=== PATIENT | male | born 1945 | race Caucasian/White ===

== ENCOUNTER 2025-01-12 06:56 | Emergency (ER) | payer MEDICARE, SELFPAY ==
--- OUTSIDE RECORDS SUMMARY | 2025-01-12 06:58 | XMS_ITS | Clinical Summary ---
Author Organization [employer] [facility] Address [address] [place] [id number] Care Team Providers Care Earth Science Technician Name Role Phone Jimmy Ley MD Primary Care Provider [phone] Eve Gregg MD Unavailable [phone] Horace Espinal MD Unavailable [phone] [place] rodarte PharmD Unavailable [phone] Allergies Active Allergy Reactions Criticality Noted Date Comments Banana GI Upset 09/07/2020 Bupropion Other - Describe In Comment Field 08/13/2007 Wellbutrin Tremulousness/anxiet y Egg GI Upset 09/06/2020 No problem with flu shot Diatrizoate Allergen Hives 08/13/2007 IV @ anw for CT/MRI scan: severe Hives! Norfloxacin Hives 01/07/2008 Pollen Extracts Itching 01/27/2024 Raspberry GI Upset 09/06/2020 Wheat Diarrhea 09/01/2020 Patient reports having Celiac's in 1996 Medications Multivitamin with Iron-Mineral tablet Take 1 tablet by mouth once daily. PRN 11/04/19 10 Active olopatadine (PatanoL) 0.1 % ophthalmic solutionIndication s:Allergic conjunctivitis, unspecified laterality Place 1 Drop into both eyes 2 times daily. 5 mL 2 11/22/19 22 Active fexofenadine (RATNA) 180 mg tablet Take 180 mg by mouth once daily. Do not crush or chew. 0 01/01/20 23 Active fluticasone propion-salmeteroL (Advair Diskus) 250-50 mcg/Dose diskus inhalerIndications :Chronic bronchitis, unspecified chronic bronchitis type (HC) Inhale 1 Puff by mouth every 12 hours. 60 Each 3 07/08/20 23 Active albuterol HFA (PRO-AIR; VENTOLIN; PROVENTIL) 90 mcg/actuation inhalerIndications :Chronic bronchitis, unspecified chronic bronchitis type (HC) Inhale 2 Puffs by mouth 4 times daily if needed for Shortness of Breath 1st choice. 8.5 g 3 08/30/19 24 Active fluticasone (50 mcg per actuation) nasal solution (FLONASE)Indicatio ns:Chronic frontal sinusitis Inhale 1 Moriarty in both nostrils once daily. 16 g 06/12/20 24 Active tamsulosin 0.4 mg capsuleIndications :BPH without urinary obstruction Take 2 Capsules (0.8 mg) by mouth once daily in the evening. 180 Capsule 2 07/26/20 24 Active Additional Information Patient taking differently: 0.4 mgOral DAILY EVENING,1 capsule a day., Reported on 12/14/2024 Calcium Citrate 250 mg calcium tabletIndications: Osteopenia, unspecified location Take 2 Tablets (500 mg) by mouth two times daily with meals. 07/24/20 24 Active atorvastatin (LIPITOR) 10 mg tabletIndications: Hyperlipidemia, unspecified hyperlipidemia type Take 1 Tablet (10 mg) by mouth once daily. 90 Tablet 3 07/27/20 24 Active escitalopram oxalate (LEXAPRO) 10 mg tabletIndications: Adjustment disorder with depressed mood Take 1 Tablet (10 mg) by mouth once daily. 90 Tablet 3 07/27/20 24 Active hydroCHLOROthiazid e 12.5 mg tabletIndications: HTN (hypertension) Take 1 Tablet (12.5 mg) by mouth once daily. 90 Tablet 3 07/27/20 24 Active losartan (COZAAR) 50 mg tabletIndications: HTN (hypertension) Take 1 Tablet (50 mg) by mouth once daily. 90 Tablet 3 07/27/20 24 Active cholecalciferol, Vitamin D3, 25 mcg (1,000 unit) chew chewable tablet Chew 2 Tablets (2,000 units) by mouth once daily. 40 units = 1 mcg (1000 units = 25 mcg) 08/01/20 24 Active verapamil SR (CALAN SR) 240 mg extended release tabletIndications: PVC (premature ventricular contraction) Take 1 Tablet (240 mg) by mouth once daily with a meal. 90 Tablet 3 09/14/19 25 Active levothyroxine (SYNTHROID) 100 mcg tabletIndications: Congenital hypothyroidism with diffuse goiter Take 1 Tablet (100 mcg) by mouth before breakfast. 90 Tablet 3 09/29/19 25 Active amLODIPine (NORVASC) 5 mg tabletIndications: HTN (hypertension) Take 1 Tablet (5 mg) by mouth once daily. 90 Tablet 3 07/27/20 24 025 Discontin ued(*Med complete/ Regimen complete/ Level of care change) Active Problems Problem Noted Date Diagnosed Date Osteopenia 08/01/2023 Overview (08/01/2023): On DEXA 08/03 - repeat in 3-5 years Colon polyp 10/04/2021 Overview (10/04/2021): Colonoscopy 09/2021 TA, repeat in 5 years, colowrap, propofol, poor IV access Meningioma, cerebral 09/07/2020 History of melanoma 06/22/2015 Dupuytren contracture 04/11/2015 Overview (04/11/2015): Right palm, mild. Primary hyperparathyroidism 04/13/2011 Hypertrophy of prostate with out urinary obstruction and other lower urinary tract symptoms (LUTS) 11/13/2010 Plantar fasciitis 11/13/2010 Osteoarthritis 11/13/2010 Mild intermittent asthma 11/03/2009 Overview (05/21/2017): Worse as a child. Still has occasional flares. Celiac disease 11/02/2008 Chronic rhinitis 08/13/2007 ADJUSTMENT DISORDER WITH DEPRESSED MOOD 08/13/19 08 Mixed hyperlipidemia 06/19/2007 Unspecified hypothyroidism 05/25/2005 Unspecified essential hypertension 05/25/2005 S/P craniotomy Resolved Problems Problem Noted Date Diagnosed Date Resolved Date Chronic bronchitis, unspecif ied chronic bronchitis type 01/04/2022 08/01/2023 Hyperplastic colon polyp 10/28/2015 Overview (10/28/2015): Colonoscopy 10/2015 hyperplastic polyp repeat in 10 years Knee pain, right 04/11/2015 05/21/2017 Special screening for malign ant neoplasm of prostate 06/19/2007 05/21/2017 Encounters Date Type Department Care Team Description 12/14/2024 9:10 AM CDT Office Visit [facility] [address] [place] [address] Ana Singer MD Urinary Problem (Patient states dark brown yesterday has gotten engineering coordinator since then/No pain with urination, frequency and urgency has gotten better.) 12/14/2024 Travel 11/24/2024 3:15 PM CDT Orders Only [facility] [address] [place] [address] Lab, [place] 11/23/2024 Travel 11/17/2024 9:00 AM CDT Office Visit [facility] [address] [place] [address] Olga Norwood MD Follow Up (Follow up after Echo ) 11/17/2024 Travel 11/12/2024 Travel 11/10/2024 11:00 AM CDT Ancillary Procedure [facility] [address] [place] [address] 11/10/2024 Travel 11/02/2024 9:00 AM CDT Nurse/Clinic Staff Only [facility] [address] [place] [address] Apply [employer] 2024 Travel 10/28/2024 Travel 10/25/[address] [address] Olga Norwood MD Refill Request (Metoprolol Succinate, Metoprolol Succinate) 10/19/2024 Orders Only [facility] Scanner 1 scan: (1-Ord) [facility]OLOGY, UROCUFF, 10/19/2024 10/13/2024 10:45 AM CUSTOMER SUPPORT SPECIALIST Nurse/Clinic Staff Only [facility] [address] [place] [address] 10/13/2024 Telephone [facility] [address] [place] [address] Jimmy Ley MD Lab 10/13/[address] [facility] [address] [place] [address] Olga Norwood MD ORDERS (HOLTER MONITOR ) from Last 3 Months Immunizations Immunization Administration Dates Next Due AMB INFLUENZA IIV3 (AGE 65+ YRS) PF (Flu Clinic Only) 05/15/2019 COVID-19 VACCINE SPIKEVAX (M ODERNA 50MCG/0.5ML) 12YO+ PFS 06/12/2024,05/07/2023 COVID-19 vaccine (Moderna 10 0mcg/0.5mL) PF, MDV 10/28/2020,09/30/2020 COVID-19 vaccine (Moderna 50 mcg/0.5mL) 12YO+ BIVALENT PF, MDV 05/04/2022 HepA-HepB (Twinrix) 08/13/2007,11/23/2003,2003 Influenza A (H1N1), Inactiva gonzalo (Age >=3 Years) 07/18/2009 Influenza, High-dose Inactivated 06/03/2024,05/12,05/23/2015 Influenza, High-dose Quadriv alent Inactivated 05/24/2023,05/12/2022,05/30/2021 Influenza, IIV3 (Age >=3 years) 05/06/2009,06/12,06/21/2007 Influenza, Inactivated AIIV4 (Age 65+ Years) Preserv Free 05/13/2020 Influenza, Inactivated IIV3 (Age 65+ Years) Preserv Free 05/13/2020,05/27/2018,05/21/2017 Pneumococcal Poly,23-Valent (Pneumovax) 05/21/20 17,11/03/2009 Pneumococcal conj 13-Valent (Prevnar 13) 015 RSV, Recombinant ADJ Reconst ituted (Arexvy 120MCG/0.5mL) 06/05/2023 Td (Age >=7 Years) 10/30/2005 Tdap 06/08/2015 Zoster (Shingrix-RZV, recombinant) 06/01/2019,,02/03/2019 Zoster (Zostavax-ZVL, live) 08/13/2007 Family History Medical History Relation Name Comments Other Brother James Hepatitis: tire retreader tasha Psychiatric illness Brother James Schizoph renic Depression Father Ramírez tried to comit suicide Heart Disease Father Ramírez Psychiatric illness Father Ramírez Depressi on Cancer Mother Haily Thyroid and col on cancer Other Mother Haily Pulmonary Fibro sis Cancer-prostate Paternal Grandfather Other Sister 1 Marilu Dupuytren's Con tractures Anesthesia Problem No Family History Blood Disease No Family History Relation Name Status Comments Brother James Father Ramírez (Age 82) Mother Haily Paternal Grandfather Sister 1 Marilu Alive Sister 2 Nan Alive Social History Tobacco Use Types Packs/Day Years Used Date Smoking Tobacco: Never Smokeless Tobacco: Never Tobacco Cessation:Counseling Given: Yes Alcohol Use Standard Drinks/Week Comments No 0 (1 standard drink = 0.6 oz pur e alcohol) PHQ-2 Answer Date Recorded PHQ-2 TOTAL SCORE 0 07/27/2024 Social Connections Answer Date Recorded Do you often feel lonely or isolated from those around you? 0 01/27/2024 Financial Resource Strain Answer Date R ecorded Difficulty of Paying Living Expenses 3 01/27/2024 Difficulty of Paying Living Expenses Not on file 01/27/2024 Food Insecurity Answer Date Recorded Do you worry your food will run out before you are able to buy more? 1 01/27/2024 Transportation Needs Answer Date Record ed Does lack of transportation keep you from medica l appointments? 1 01/27/2024 Does lack of transportation keep you from work, meetings or getting things that you need? 1 01/27/2024 Housing Stability Answer Date Recorded What is your housing situation today? 1 01/27/2024 Utilities Answer Date Recorded Do you have trouble paying f or utilities (for example, heat, electricity, water, phone)? 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 Not on file Not on file Not on gagandeep e Not on file Not on file Not on file Not on file Obstetrics History Last Filed Vital Signs Vital Sign Reading Time Taken Comments Blood Pressure 109/75 12/14/2024 9:21 AM CDT Pulse 95 12/14/2024 9:21 AM CDT Temperature 36.9 C (98.4 F) 12/14/2024 9:25 AM CDT Respiratory Rate 16 01/27/2024 11:15 AM CDT Oxygen Saturation 98% 12/14/2024 9:21 AM CDT Inhaled Oxygen Concentration - - Weight 92.8 kg (204 lb 9.6 oz) 12/14/2024 9:21 A M CDT Height 173.5 cm (5' 8.31) 07/27/2024 7:50 AM CS T Body Mass Index 30.83 07/27/2024 7:50 AM CUSTOMER SUPPORT SPECIALIST Plan of Treatment Upcoming Encounters Date Type Department Care Team (Late st Contact Info) Description 02/02/2025 3:15 PM CDT Office Visit [facility] [address] [place] [address] Jimmy Ley MD [address] [place] [address] 02/22/2025 10:27 AM CDT Hospital Encounter [facility] [address] [place] [address] Hossein Bal MD [address] [place] [address] [place] [address] 02/22/2025 10:27 AM CDT - 02/22/2025 12:02 PM CDT Surgery [facility] [address] [place] [address] Hossein Bal MD [address] [place] [place] [id number] ROBOTIC AQUABLATION OF PROSTATE 04/15/2025 10:20 AM CDT Office Visit [facility] [address] [place] [id number] Eve Gregg MD [address] [place], [place] [id number] Scheduled Procedures Name Priority Associated Diagnoses Date/Ti me ROBOTIC AQUABLATION OF PROSTATE Tier 2 LOWER URINARY TRACT SYMPTOMS DUE TO BENIGN PROSTATIC HYPERPLASIA 02/22/2025 10:27 AM CDT Health Maintenance Due Date Last Done Comments Tetanus booster 06/08/2025 06/08/2015, 10/30/2005 BMI (ht and wt on same day) for age 18+ 07/27/2025 07/27/2024, 01/27/2024, 07/08/2023, Additional history exists Medicare Wellness for age 65+ 07/28/2025, 07/08/2023, 07/03/2022, Additional history exists Depression screening for age 12+ 07/30/2025 07/30/2024, 07/27/2024, 07/24/2024, Additional history exists Hepatitis B series for 19+ Completed 08/13, 11/23/2003, 10/18/2003 Tdap Completed 06/08/2015 Pneumococcal series for age 50+ Completed 05/21/2017, 05/23/2015, 11/03/2009 Hepatitis C screening for ag e 18-79 Completed 05/27/2018 Zoster (shingles) series for age 50+ Completed 06/01/2019, 05/13/2019, 02/03/2019, Additional history exists RSV vaccine for adults or Completed 06/05/2023 Influenza Vaccine Completed 06/03/2024, , 05/13/2020, Additional history exists COVID-19 vaccine series Completed 12/12/19, 06/12/2024, 12/03/2023, Additional history exists Medical Devices Implanted Type Area Seafood Clerk Device Identifier Shelf Expiration Date Model / Serial / Lot Dura Neuro 3x3in Durepair Sut - [id number] Implanted:Qty: 1 on 09/07/2020 by Terence Napoles MD at [facility] Right: Cranium [employer] 10/09/2022 [id number] / / [id number] Screw Neuro 4mm Matrixneuro Slf Drill Titnm - [id number] Implanted:Qty: 21 on 09/07/2020 by Terence Napoles MD at [facility] Right: Cranium J And J Depuy CMF [id number] 4.01 / / Plate Facial 6 Hole Synthes Strut - [id number] Implanted:Qty: 1 on 09/07/2020 by Terence Napoles MD at [facility] Right: Cranium J [employer] J Depuy CMF [id number] / / Sutton Hole Cover Neuro 24mm Synthes Low Pro Titnm - [id number] Implanted:Qty: 3 on 09/07/2020 by Terence Napoles MD at [facility] Right: Cranium J [employer] J Depuy CMF [id number] / / Procedures Procedure Name Priority Date/Time Associated Diagnosis Comments URINALYSIS MICROSCOPIC Routine 12/14/2024 9:18 AM CDT Urine discoloration URINE CULTURE Routine 12/14/2024 9:18 AM CDT Urine discoloration URINALYSIS MACROSCOPIC - [facility] ONLY POC DIP (QUEST) Routine 12/14/2024 9:18 AM CDT Urine discoloration TSH Routine 11/24/2024 3:10 PM CDT Hypothyroidism, unspecified type ECHO TTE LIMITED WO CONTRAST W COLOR W LTD DOPPLER Routine 11/10/2024 11:24 AM CDT PVC (premature ventricular contraction) EXTENDED HOLTER Routine 10/21/2024 PVC (premature ventricular contraction) SCAN-DIAGNOSTIC REPORT 10/19/2024 12:00 AM CDT ANTI HCV Routine 05/27/2018 8:45 AM CDT Need for hepatitis C screening test from Last 3 Months or Most Recently Relevant to Health Maintenance Results * (ABNORMAL) POCT Urinalysis Dipstick Only [[id number]] (12/14/2024 9:18 AM CDT) Pathologist [facility] PH 7.5 5.0 - 8.0 [facility] SPECIFIC GRAVITY 1.015 1.001 - 1.035 [facility] GLUCOSE NEGATIVE NEGATIVE [facility] BILIRUBIN NEGATIVE NEGATIVE [facility] KETONES NEGATIVE NEGATIVE [facility] OCCULT BLOOD 2+(A) NEGATIVE [facility] PROTEIN NEGATIVE NEGATIVE [facility] NITRITE NEGATIVE NEGATIVE [facility] LEUKOCYTE ESTERASE NEGATIVE NEGATIVE [facility] Urine URINE SPECIMEN / Unknown 12/14/2024 9:18 AM CDT 12/14/2024 9:19 AM CDT us Ana Singer MD URINE Final Resul t [facility] [address] [place] [address], [facility] [address] [place] [address] * (ABNORMAL) URINALYSIS MICROSCOPIC [[id number]] - routine (12/14/2024 9:18 AM CDT) Pathologist [facility] RBC 51-100(A) 0-2, None Seen /HPF 12/14/2024 2:35 PM CDT [facility] WBC 0-2 0-2, 3-5, None Seen /HPF 12/14/2024 2:35 PM CDT [facility] BACTERIA None Seen None Seen, Rare, Few Bacteria/ HPF 12/14/2024 2:35 PM CDT [facility] EPITHELIAL CELLS None Seen None Seen, Few Epi/HPF 12/14/2024 2:35 PM CDT [facility] HYALINE CASTS 0-2 0-2, 3-5 /LPF 12/14/2024 2:35 PM CDT [facility] Urine URINE SPECIMEN / Unknown Non-Blood / Unknown 12/14/2024 9:18 AM CDT 12/14/2024 9:18 AM CDT Ana Singer MD URINE Final Resul t Performing Organization Address [facility] Co de Phone Number [facility] [address] [place] [address], [place] * URINE CULTURE [[id number]] (12/14/2024 9:18 AM CDT) CULTURE No growth (<1,000 CFU/mL) 12/15/2024 1:54 PM CDT [facility] Urine URINE SPECIMEN / Unknown Non-Blood / Unknown 12/14/2024 9:18 AM CDT 12/14/2024 9:18 AM CDT Ana Singer MD MICROBIOLOGY Final Resul t Performing Organization Address [facility] de Phone Number [facility] [address] [place] [address], [place] * TSH (11/24/2024 3:10 PM CDT) TSH 1.36 0.40 - 4.50 mIU/L [facility] [employer] [facility] Blood BLOOD SPECIMEN / Unknown 11/24/2024 3:10 PM CDT 11/24/2024 3:13 PM CDT Narrative [facility] - 11/25/2024 3:39 AM CDT FASTING:NO FASTING: NO Jimmy Ley MD CHEMISTRY Final Resu lt Performing Organization Address City/[facility] Co de Phone Number [facility] [address] [address], [facility] [address] [place] [address] * ECHO TTE LIMITED WO CONTRAST W COLOR W LTD DOPPLER (11/10/2024 11:24 AM CDT) EJECTION FRACTION 62 % LVEDD 4.7 cm Anatomical Region Laterality Modality Ultrasound 11/10/2024 11:0 3 AM CDT Narrative 11/10/2024 12:20 PM CDT ECHOCARDIOGRAM RAMÍREZ MANCIA JR. : 1945 79 years Study Date: 11/10/2024 11:03:32 AM Gender: M BP: 143/78 mmHg Height: 173.00 cm BSA: 2.09 m Weight: 95.00 kg Tech: ANNE Referring MD: OLGA NORWOOD Site: [facility] Location: MOBILE-OP Patient Location: Outpatient. Procedure: Limited 2D , Color Doppler and Limited Spectral Doppler. Indication for study: PVC Cardiac Rhythm: Regular.Study quality: Good. Final Impressions: Limited Echocardiogram performed 1. Normal left ventricular size, normal wall thickness, normal global systolic function, calculated EF of 62 %. 2. Right ventricular cavity size is normal, global systolic RV function is normal. 3. No significant valve disease detected. Comparison Compared to prior exam of 11/06/22, there has been no significant change. Chamber Sizes and Function Normal left ventricular size, normal wall thickness, normal global systolic function, calculated EF of 62 %. Right ventricular cavity size is normal, global systolic RV function is normal. Valves, RV Pressures and Diastolic Function The aortic valve is normal in structure and trileaflet, no stenosis and no regurgitation. The mitral valve is normal in structure, no mitral regurgitation. Normal diastolic function. The tricuspid valve is normal in structure and trace tricuspid regurgitation. The pulmonic valve is not well visualized. No Doppler performed for pulmonic regurgitation is present on color flow. MEASUREMENTS AND CALCULATIONS 2-D Measurements and LV Function: LVID (d) 4.7 cm Planimetered EF 62 % LVID (s) 2.4 cm LV FS% (2D) 49 % IVS (d) 0.8 cm LVOT diameter 2.1 cm LVPW (d) 1.3 cm HR 62 bpm . This study was interpreted by an [facility] accredited facility. Final Procedure Note Renard Stapleton MD - 11/10/2024 ECHOCARDIOGRAM RAMÍREZ MANCIA JR. : 1945 79 years Study Date: 11/10/2024 11:03:32 AM Gender: M BP: 143/78 mmHg Height: 173.00 cm BSA: 2.09 m Weight: 95.00 kg Tech: ANNE Referring MD: OLGA NORWOOD Site: [facility] Reading Location: MOBILE-OP Patient Location: Outpatient. Procedure: Limited 2D , Color Doppler and Limited Spectral Doppler. Indication for study: PVC Cardiac Rhythm: Regular.Study quality: Good. Final Impressions: Limited Echocardiogram performed 1. Normal left ventricular size, normal wall thickness, normal globalsystolic function, calculated EF of 62 %. 2. Right ventricular cavity size is normal, global systolic RV functionis normal. 3. No significant valve disease detected. Comparison Compared to prior exam of 11/06/22, there has been no significant change. Chamber Sizes and Function Normal left ventricular size, normal wall thickness, normal globalsystolic function, calculated EF of 62 %. Right ventricular cavity size isnormal, global systolic RV function is normal. Valves, RV Pressures and Diastolic Function The aortic valve is normal in structure and trileaflet, no stenosis and noregurgitation. The mitral valve is normal in structure, no mitralregurgitation. Normal diastolic function. The tricuspid valve is normal instructure and trace tricuspid regurgitation. The pulmonic valve is notwell visualized. No Doppler performed for pulmonic regurgitation ispresent on color flow. MEASUREMENTS AND CALCULATIONS 2-D Measurements and LV Function: LVID (d) 4.7 cm Planimetered EF 62 % LVID (s) 2.4 cm LV FS% (2D) 49 % IVS (d) 0.8 cm LVOT diameter 2.1 cm LVPW (d) 1.3 cm HR 62 bpm . This study was interpreted by an [facility] accredited facility. Final us Olga Norwood MD ECHO ORD Final Result * ZIO PATCH XT - weekly to monthly symptoms. (10/21/2024) 10/21/2024 Narrative Fernando Atkins MD - 11/12/2024 12:00 AM CDT Agree with Findings. Please see scan document for full report. Signed By Fernando Atkins MD Procedure Note Fernando Atkins MD - 11/12/2024 Agree with Findings. Please see scan document for full report. Signed By Fernando Atkins MD us Olga Norwood MD CARDIAC SERVICES ORD Final Re sult * SCAN-DIAGNOSTIC REPORT (10/19/2024 12:00 AM CDT) us Scanner OTHER Final Result * ANTI HCV [[id number]] (05/27/2018 8:45 AM CDT) HEPATITIS C ANTIBODY Non-React rashida Non-React rashida 05/27/2018 1:59 PM CDT [facility] Comment:Antibodies to HCV no t detected; does not exclude the possibility of exposure to HCV. Blood BLOOD SPECIMEN / Unknown Venipuncture / Unknown 05/27/2018 8:45 AM CDT 05/27/2018 8:45 AM CDT us Jimmy Ley MD SEND OUTS Final Resu lt [facility] [address] [place] [address], [place] from Last 3 Months or Most Recently Relevant to Health Maintenance Insurance [employer] MEDICARE ADVANTAGE MR MEDICARE PART A HB ONLY Advance Directives Documents on File Type Date Recorded Patient Credit Compliance Officer Expl anation Healthcare Directive 09/07/2020 9:52 AM Healthcare Directive 09/07/2020 6:55 AM HE ALTHCARE DIRECTIVE/SIGNED 06/15/2019 Healthcare Directive 06/15/2019 [facility] DIRECTIVE, 06/15/2019 * Full Code (Latest Code Status on File) Date Activated Date Inactivated Comments 09/07/2020 7:13 AM 09/09/2020 6:06 PM Question Answer Comments Code Status Discussion: Per Existing Order * Full Code Date Activated Date Inactivated Comments 05/26/2005 12:22 AM 05/29/2005 3:45 PM Care Teams Earth Science Technician Relationship Specialty Start Date End Date Jimmy Ley MD [address] [place] [address] PCP - General Family Practice 12/20/16 Eve Gregg MD [address] [place] [address] Dermatology Dermatology 01/30/17 Horace Espinal MD [address] [place] [address] Endocrinology 09/05/22 Cassy Swanson, PharmD [address] [place], [place] [address]alexi [facility] [place] [address] Pharmacist Medication Management Pharmacology 07/24/24 07/24/27
--- OUTSIDE RECORDS SUMMARY | 2025-01-12 06:58 | XMS_ITS | Patient Health Record ---
Author Organization [facility] Address [address] [place] [address] Care Team Providers Care Bottom Polisher Name Role Phone JUSTYN YANG Primary Care Provider Reason For Referral No Information Plan Of Treatment No Information Insurance Providers Payer Name Payer Address Payer Phone Subscriber Number Group Number Insured Name Patient Relationship to Insured Coverage Start Date Coverage End Date [place] BLUE PPO/PPC /FEP [address] [place] [address] [id number] Ramírez Mancia jr Self - patient is the insured
[2025-01-12 07:03] VITALS: BP 139/98; PULSE 111; RESP 20; TEMP 36.7; O2SAT 97; BMI 31.0
--- NOTE | 2025-01-12 08:02 | ED.ABDPAIN ---
HPI - Abdominal Pain General Chief Complaint: Abdominal Pain Stated Complaint: abdominal pain Time Seen by Provider: 01/12/25 07:37 Related Data Home Medications ?Medication ?Instructions ?Recorded ?Confirmed albuterol sulfate 90 mcg/actuation 2 puff inhalation Q4-6H PRN 08/04/23 08/04/23 aerosol inhaler amlodipine 5 mg tablet 5 mg PO DAILY 08/04/23 08/04/23 atorvastatin 10 mg tablet 10 mg PO DAILY 08/04/23 08/04/23 calcium citrate 200 mg PO QDAY 08/04/23 08/04/23 escitalopram oxalate 10 mg tablet 10 mg PO DAILY 08/04/23 08/04/23 fexofenadine 180 mg tablet 180 mg PO Q24H 08/04/23 08/04/23 fluticasone 250 mcg-salmeterol 50 1 ea inhalation BID 08/04/23 08/04/23 mcg/dose blistr powdr for inhalation fluticasone 250 mcg-salmeterol 50 1 inh inhalation Q12H 08/04/23 08/04/23 mcg/dose blistr powdr for inhalation (Advair Diskus) hydrochlorothiazide 12.5 mg tablet 12.5 mg PO DAILY 08/04/23 08/04/23 levothyroxine 112 mcg tablet 112 mcg PO DAILY 08/04/23 08/04/23 losartan 50 mg tablet 75 mg PO BID 08/04/23 08/04/23 metoprolol succinate 50 mg 50 mg PO DAILY 08/04/23 08/04/23 tablet,extended release 24 hr multivitamin 1 tab PO QAM 08/04/23 08/04/23 prednisone 20 mg tablet mg PO 08/04/23 08/04/23 tamsulosin 0.4 mg capsule 0.8 mg PO DAILY 08/04/23 08/04/23 Previous Rx's ?Medication ?Instructions ?Recorded albuterol sulfate 90 mcg/actuation 2 puff inhalation Q4-6H PRN 08/04/23 aerosol inhaler shortness of breath or wheezing #6.7 grams benzonatate 100 mg capsule 100 mg PO BID PRN cough #14 caps 08/04/23 Allergies Allergy/AdvReac Type Severity Reaction Status Date / Time bupropion (From Wellbutrin) Allergy Verified 08/04/23 10:05 Iodinated Contrast Media Allergy Verified 08/04/23 10:05 norfloxacin (From Noroxin) Allergy Verified 08/04/23 10:05 [facility] Medical History (Updated 01/12/25 @ 07:10 by Pattie Scales, RN) Celiac disease ?K90.0 - Celiac disease (ICD-10) Mild intermittent asthma ?J45.20 - Mild intermittent asthma, uncomplicated (ICD-10) Dupuytren contracture ?M72.0 - Palmar fascial fibromatosis [Dupuytren] (ICD-10) Meningioma, cerebral ?D32.0 - Benign neoplasm of cerebral meninges (ICD-10) Thyroid cancer ?C73 - Malignant neoplasm of thyroid gland (ICD-10) Hypothyroidism ?E03.9 - Hypothyroidism, unspecified (ICD-10) Hypertension ?I10 - Essential (primary) hypertension (ICD-10) Essential tremor ?G25.0 - Essential tremor (ICD-10) Surgical History (Updated 01/12/25 @ 07:10 by Pattie Scales, MAGDALENE) H/O craniotomy ?Z98.890 - Other specified postprocedural states (ICD-10) H/O parathyroidectomy ?Z98.890 - Other specified postprocedural states (ICD-10) ?Z90.89 - Acquired absence of other organs (ICD-10) Exam Const: Vital Signs, click to edit/add: Vital Signs - 24 hr 01/12/25 07:03 Temperature 98.0 F Pulse Rate [Left P ulse Oximeter] 111 H Respiratory Rate 20 Blood Pressure [Ri ght Upper Arm] 139/98 H Pulse Oximetry 97 Oxygen Delivery Me thod Room Air Course Vital Signs Vital signs: Initial Vital Signs Temperature 98.0 F 01/12/25 07:03 Temperature Source Temporal Artery Scan 01/12/25 07:03 Pulse Rate 111 H 01/12/25 07:03 Respiratory Rate 20 01/12/25 07:03 Blood Pressure 139/98 H 01/12/25 07:03 Blood Pressure Mean 111 H 01/12/25 07:03 Blood Pressure Position Sitting 01/12/25 07:03 Pulse Oximetry 97 01/12/25 07:03 Oxygen Delivery Method Room Air 01/12/25 07:03 Vital Signs Temperature 98.0 F 01/12/25 07:03 Pulse Rate 111 H 01/12/25 07:03 Respiratory Rate 20 01/12/25 07:03 Blood Pressure 139/98 H 01/12/25 07:03 Pulse Oximetry 97 01/12/25 07:03 Oxygen Delivery Method Room Air 01/12/25 07:03 Temperature 98.0 F 01/12/25 07:03 Pulse Rate 111 H 01/12/25 07:03 Respiratory Rate 20 01/12/25 07:03 Blood Pressure 139/98 H 01/12/25 07:03 Pulse Oximetry 97 01/12/25 07:03 Oxygen Delivery Method Room Air 01/12/25 07:03 Discharge Plan Discharge Prescriptions: No Action atorvastatin 10 mg tablet 10 mg PO DAILY escitalopram oxalate 10 mg tablet 10 mg PO DAILY fluticasone propion-salmeterol 250-50 mcg/dose blister with device 1 ea inhalation BID hydrochlorothiazide 12.5 mg tablet 12.5 mg PO DAILY losartan 50 mg tablet 75 mg PO BID metoprolol succinate 50 mg tablet extended release 24 hr 50 mg PO DAILY tamsulosin 0.4 mg capsule 0.8 mg PO DAILY amlodipine 5 mg tablet 5 mg PO DAILY albuterol sulfate 90 mcg/actuation HFA aerosol inhaler 2 puff inhalation Q4-6H PRN calcium citrate 200 mg (950 mg) tablet 200 mg PO QDAY fexofenadine 180 mg tablet 180 mg PO Q24H fluticasone propion-salmeterol [Advair Diskus] 250-50 mcg/dose blister with device 1 inh inhalation Q12H levothyroxine 112 mcg tablet 112 mcg PO DAILY prednisone 20 mg tablet PO multivitamin Tablet 1 tab PO QAM albuterol sulfate 90 mcg/actuation HFA aerosol inhaler 2 puff inhalation Q4-6H PRN (Reason: shortness of breath or wheezing) Qty: 6.7 0RF benzonatate 100 mg capsule 100 mg PO BID PRN (Reason: cough) Qty: 14 0RF Follow Up/Referrals: Jimmy Ley MD [Primary Care Provider, Family Practice]
--- OUTSIDE RECORDS SUMMARY | 2025-01-12 08:24 | XMS_ITS | Clinical Summary ---
Author Organization [facility] Address [address] , [address] [place] [address] Phone Care Team Providers Care Engagement Director Name Role Phone Mohamud Christianson Unavailable Unavailable Conditions or Problems Problem Name Problem Code Onset Date Status Entry Date Provider Comment Standard Description Annotate Primary cough headache 84684250 (SNOMED CT) Active Petr Sanderson MD Cough headache syndrome Cough headache syndrome 98810785 (SNOMED CT) Active Petr Sanderson MD Cough headache syndrome Essential tremor 415834353 (SNOMED CT) Active Raza Weir MD Essential tremor SYNCOPE [id number] (SNOMED CT) Active Asim Licona DO Syncope Medications Medication Instructions Start Date Stop Date Generic Name NDC Provider PRIMIDONE 50 MG TABS Week #1 take 1/2 in PM. Week #2 take 1/2 bid. Week #3 take 1/2 in AM and 1 in PM. Week #4 and on take 1 bid 3 PRIMIDONE [id number] Raza Weir MD Medications Administered No information available. Allergies, Adverse Reactions, Alerts No information available. Results Date Name Value Unit Range Flag Description Internal Other: Verbal Autho rization/Emergency Contact - OBS VERBAL_EMER DONE Verbal au thorization and emergency contact Internal Other: Authorizatio n - OBS [id number] Yes GE use only - for [employer] import when terms are not otherwise specified HIECONSENT Yes Consent To Release information to the Health Information Exchange (HIE) Plan of Care Type Date Detail Pending order Follow up Pending order Follow up Pending order MRA-Head W/O Pending order MRA-Neck W/O Pending order Neurosurgery - N SA Referral Pending Order exclud ed from report: Pending order Follow up Pending order Neurosurgery - N SA Referral Pending order Patient Instruct ions Pending order MRI-Brain W/WO Procedures Code Procedure Name Date Entry Date [id number] MRA-Head W/O [id number] MRA-Neck W/O CPT-02912 MRA Head W/O CPT-05748 MRA Neck W/O [id number] Neurosurgery - NSA Referral ORDERS Patient Instructions ORDERS Follow up [id number] MRI-Brain W/WO Vital Signs No information available. Immunizations No information available. Advance Directives No information available.
[2025-01-12] MEDS: ONDANSETRON 2 MG/ML inj 4 MG IVP (08:30)
[2025-01-12] MEDS: KETOROLAC 15 MG/ML inj IVP (08:30)
--- NOTE | 2025-01-12 08:32 | ED.GENADULT ---
HPI - General Adult General Chief complaint: Abdominal Pain <Abbi Franklin MD - Last Filed: 01/14/25 00:02> Stated complaint: abdominal pain <Abbi Franklin MD - Last Filed: 01/14/25 00:02> Time Seen by Provider: 01/12/25 07:37 <Abbi Franklin MD - Last Filed: 01/14/25 00:02> Source: patient <Abbi Franklin MD - Last Filed: 01/14/25 00:02> Mode of arrival: ambulatory <Abbi Franklin MD - Last Filed: 01/14/25 00:02> Limitations: no limitations <Abbi Franklin MD - Last Filed: 01/14/25 00:02> History of Present Illness HPI narrative: 79-year-old male with a interesting medical history presents to the emergency department for evaluation of left lower quadrant abdominal pain. Symptoms started about 28 hours ago upon awakening. He initially felt gassy and bloated, starting at 1:30 a.m. on Saturday morning. He reported a feeling of intestinal and stomach inflammation, lots of gas and burping. He tried taking some simethicone which did initially improve his symptoms somewhat. Throughout the day yesterday, he was able to eat and drink normally. No vomiting, no diarrhea, no bloody stools. He reports that he continued to have some mild intermittent discomfort but was able to sleep and awoke this morning at 4:30 a.m. with pain more the left lower abdomen and return of the gas and bloating symptoms. Pain is constant, aching and 7/10 in intensity. He has not tried taking any medication to help with his symptoms. He does report a history of prior kidney stone and also having had recent imaging within the last year that demonstrated that he has kidney stones. These were performed at an outside radiology site. He has not noted any dysuria or hematuria. He is notable history of hematuria workup over the past month, reports that he had a renal ultrasound and cystoscopy in addition. He is scheduled for an Aqua ablation of the prostate in mid February. He denies a history of other abdominal surgeries. No trauma or injury. His pain does not radiate today. No prior history of bowel obstructions. Reports that his past medical history is notable for hypertension, anxiety, tremor, hypothyroidism, hyperparathyroidism, BPH. He reports that his medications are correct as listed with the exception of no longer using metoprolol and taking verapamil instead which has helped with his PVCs and headaches. Reports benign social history, ROS notable for the GI and generalized symptoms as described above, otherwise denies times 12 systems today. <Abbi Franklin MD - Last Filed: 01/14/25 00:02> Related Data Home medications: Home Medications ?Medication ?Instructions ?Recorded ?Confirmed albuterol sulfate 90 mcg/actuation 2 puff inhalation Q4-6H PRN 08/04/23 08/04/23 aerosol inhaler amlodipine 5 mg tablet 5 mg PO DAILY 08/04/23 08/04/23 atorvastatin 10 mg tablet 10 mg PO DAILY 08/04/23 08/04/23 calcium citrate 200 mg PO QDAY 08/04/23 08/04/23 escitalopram oxalate 10 mg tablet 10 mg PO DAILY 08/04/23 08/04/23 fexofenadine 180 mg tablet 180 mg PO Q24H 08/04/23 08/04/23 fluticasone 250 mcg-salmeterol 50 1 ea inhalation BID 08/04/23 08/04/23 mcg/dose blistr powdr for inhalation fluticasone 250 mcg-salmeterol 50 1 inh inhalation Q12H 08/04/23 08/04/23 mcg/dose blistr powdr for inhalation (Advair Diskus) hydrochlorothiazide 12.5 mg tablet 12.5 mg PO DAILY 08/04/23 08/04/23 levothyroxine 112 mcg tablet 112 mcg PO DAILY 08/04/23 08/04/23 losartan 50 mg tablet 75 mg PO BID 08/04/23 08/04/23 metoprolol succinate 50 mg 50 mg PO DAILY 08/04/23 08/04/23 tablet,extended release 24 hr multivitamin 1 tab PO QAM 08/04/23 08/04/23 prednisone 20 mg tablet mg PO 08/04/23 08/04/23 tamsulosin 0.4 mg capsule 0.8 mg PO DAILY 08/04/23 08/04/23 Previous Rx's ?Medication ?Instructions ?Recorded albuterol sulfate 90 mcg/actuation 2 puff inhalation Q4-6H PRN 08/04/23 aerosol inhaler shortness of breath or wheezing #6.7 grams benzonatate 100 mg capsule 100 mg PO BID PRN cough #14 caps 08/04/23 hydrocodone 5 mg-acetaminophen 325 1 tab PO Q4-6H PRN pain #14 tabs 01/12/25 mg tablet ketorolac 10 mg tablet 10 mg PO Q12H PRN pain #10 tabs 01/12/25 <Abbi Franklin MD - Last Filed: 01/14/25 00:02> Allergies/adverse reactions: Allergies Allergy/AdvReac Type Severity Reaction Status Date / Time bupropion (From Wellbutrin) Allergy Verified 08/04/23 10:05 Iodinated Contrast Media Allergy Verified 08/04/23 10:05 norfloxacin (From Noroxin) Allergy Verified 08/04/23 10:05 <Abbi Franklin MD - Last Filed: 01/14/25 00:02> [facility] Medical History: Medical History Celiac disease ?K90.0 - Celiac disease (ICD-10) Mild intermittent asthma ?J45.20 - Mild intermittent asthma, uncomplicated (ICD-10) Dupuytren contracture ?M72.0 - Palmar fascial fibromatosis [Dupuytren] (ICD-10) Meningioma, cerebral ?D32.0 - Benign neoplasm of cerebral meninges (ICD-10) Thyroid cancer ?C73 - Malignant neoplasm of thyroid gland (ICD-10) Hypothyroidism ?E03.9 - Hypothyroidism, unspecified (ICD-10) Hypertension ?I10 - Essential (primary) hypertension (ICD-10) Essential tremor ?G25.0 - Essential tremor (ICD-10) <Abbi Franklin MD - Last Filed: 01/14/25 00:02> Surgical History: Surgical History H/O craniotomy ?Z98.890 - Other specified postprocedural states (ICD-10) H/O parathyroidectomy ?Z98.890 - Other specified postprocedural states (ICD-10) ?Z90.89 - Acquired absence of other organs (ICD-10) <Abbi Franklin MD - Last Filed: 01/14/25 00:02> Social History: Social History Smoking Status: Never smoker Second hand tobacco smoke exposure: No How often do you have a drink containing alcohol: never How often do you have six or more drinks on one occasion: Never AUDIT-C Alcohol total score: 0 Non-prescribed substance use: denies use service: No <Abbi Franklin MD - Last Filed: 01/14/25 00:02> Exam Const: Vital Signs, click to edit/add: Vital Signs - 24 hr 01/12/25 07:03 Temperature 98.0 F Pulse Rate [Left P ulse Oximeter] 111 H Respiratory Rate 20 Blood Pressure [Ri ght Upper Arm] 139/98 H Pulse Oximetry 97 Oxygen Delivery Me thod Room Air <Abbi Franklin MD - Last Filed: 01/14/25 00:02> Vital Signs, click to edit/add: Vital Signs - 24 hr 01/12/25 07:03 Temperature 98.0 F Pulse Rate [Left P ulse Oximeter] 111 H Respiratory Rate 20 Blood Pressure [Ri ght Upper Arm] 139/98 H Pulse Oximetry 97 Oxygen Delivery Me thod Room Air <Afia Alva MD - Last Filed: 01/12/25 15:07> Documenting provider has reviewed patient's vital signs: yes <Abbi Franklin MD - Last Filed: 01/14/25 00:02> Common normals: no apparent distress and alert <Abbi Franklin MD - Last Filed: 01/14/25 00:02> General appearance: well kempt <Abbi Franklin MD - Last Filed: 01/14/25 00:02> Other: Friendly and cooperative. Excellent teller supervisor <Abbi Franklin MD - Last Filed: 01/14/25 00:02> HENMT: Common normals: normocephalic, moist oral mucous membranes and oropharynx normal <Abbi Franklin MD - Last Filed: 01/14/25 00:02> Head and scalp: normocephalic <MD Artur Rebollar Last Filed: 01/14/25 00:02> Face and sinus: normal facial exam <MD Artur Rebollar Last Filed: 01/14/25 00:02> Mouth: oral and palatal mucosa normal <MD Artur Rebollar Last Filed: 01/14/25 00:02> Throat: posterior oropharynx normal <MD Artur Rebollar Last Filed: 01/14/25 00:02> Eye: Common normals: conjunctivae normal <MD Artur Rebollar Last Filed: 01/14/25 00:02> General eye: normal appearance of both eyes <MD Artur Rebollar Last Filed: 01/14/25 00:02> Conjunctiva: conjunctiva(e) normal <MD Artur Rebollar Last Filed: 01/14/25 00:02> Neck & C-Spine: Common normals: full ROM and no lymphadenopathy <MD Artur Rebollar Last Filed: 01/14/25 00:02> Resp: Common normals: normal respiratory effort, no use of accessory muscles and clear to auscultation bilaterally <MD Artur Rebollar Last Filed: 01/14/25 00:02> Effort & inspection: able to speak in complete sentences <MD Artur Rebollar Last Filed: 01/14/25 00:02> Auscultation: clear to auscultation bilaterally <MD Artur Rebollar Last Filed: 01/14/25 00:02> Cardio: Common normals: regular rate, regular rhythm, S1 normal heart sound, S2 normal heart sound and no murmurs <MD Artur Rebollar Last Filed: 01/14/25 00:02> Rate: regular rate <MD Artur Rebollar Last Filed: 01/14/25 00:02> Rhythm: regular rhythm <MD Artur Rebollar Last Filed: 01/14/25 00:02> Heart sounds: S1 normal and S2 normal <MD Artur Rebollar Last Filed: 01/14/25 00:02> GI: Other: Abdomen does seem mildly distended. Bowel sounds do sound a little hyperactive. He is mildly tender to the epigastrium and periumbilical area only but certainly no rebound tenderness or guarding. No mass. Difficult to feel the organs though because of the gas and bloating. No CVA tenderness. <MD Artur Rebollar Last Filed: 01/14/25 00:02> Extremity: Common normals: normal to inspection and normal capillary refill <MD Artur Rebollar Last Filed: 01/14/25 00:02> Neuro: Common normals: moves all extremities <MD Artur Rebollar Last Filed: 01/14/25 00:02> Sensorium/orientation: alert <MD Artur Rebollar Last Filed: 01/14/25 00:02> Speech: speech normal <MD Artur Rebollar Last Filed: 01/14/25 00:02> Psych: Appearance: well kempt <MD Artur Rebollar Last Filed: 01/14/25 00:02> Attitude: engaged <MD Artur Rebollar Last Filed: 01/14/25 00:02> Activity/motor behavior: appropriate eye contact <MD Artur Rebollar Last Filed: 01/14/25 00:02> Attention/concentration: attention grossly intact <MD Artur Rebollar Last Filed: 01/14/25 00:02> Insight: insight good <MD Artur Rebollar Last Filed: 01/14/25 00:02> Judgement: judgment good <MD Artur Rebollar Last Filed: 01/14/25 00:02> Skin: Common normals: no rashes or lesions noted <MD Artur Rebollar Last Filed: 01/14/25 00:02> General skin exam: no rashes or lesions noted <MD Atrur Rebollar Last Filed: 01/14/25 00:02> Course Course ED Course: 79-year-old male presenting with symptoms suspicious for kidney stone but also concerning for possible bowel obstruction, colitis, diverticulitis or other similar etiology. Cannot exclude pancreatitis, urine infection, amongst others. He is contrast allergic. Will place peripheral IV, obtain typical intra-abdominal labs. Will give Toradol and Zofran for symptoms. Awaiting urinalysis. CT of the abdomen and pelvis without contrast. Await findings. Keep NPO for now and hand over care to incoming day should partner. <Abbi Franklin MD - Last Filed: 01/14/25 00:02> Reevaluation(s) Reevaluation #1: This patient was signed out to me my by my colleague Dr. Franklin. At this time patient is feeling much better after Toradol and Zofran. CT by my read unfortunately does show 2 to possibly 3 stones in the left ureter causing hydronephrosis and hydroureter on the left. Currently awaiting official radiological read. Plan on calling Dr. Bal, urologist at [facility] as patient has established with this particular group. <Afia Alva MD - Last Filed: 01/12/25 15:07> Reevaluation #2: patient noted some pain that is returning. Unfortunately he did drive here today so we are holding off on any further pain medications as he did receive Toradol earlier this morning. <Afia Alva MD - Last Filed: 01/12/25 15:07> Consultations Consultation #1: , [facility] , contacted. His partner Dr. Parker was available for consult. Does suggest trial of pain medications and follow up next week with the group. <Afia Alva MD - Last Filed: 01/12/25 15:07> Vital Signs Vital signs: Initial Vital Signs Temperature 98.0 F 01/12/25 07:03 Temperature Source Temporal Artery Scan 01/12/25 07:03 Pulse Rate 111 H 01/12/25 07:03 Respiratory Rate 20 01/12/25 07:03 Blood Pressure 139/98 H 01/12/25 07:03 Blood Pressure Mean 111 H 01/12/25 07:03 Blood Pressure Position Sitting 01/12/25 07:03 Pulse Oximetry 97 01/12/25 07:03 Oxygen Delivery Method Room Air 01/12/25 07:03 Vital Signs Temperature 98.0 F 01/12/25 07:03 Pulse Rate 111 H 01/12/25 07:03 Respiratory Rate 20 01/12/25 07:03 Blood Pressure 139/98 H 01/12/25 07:03 Pulse Oximetry 97 01/12/25 07:03 Oxygen Delivery Method Room Air 01/12/25 07:03 Temperature 98.0 F 01/12/25 07:03 Pulse Rate 111 H 01/12/25 07:03 Respiratory Rate 20 01/12/25 07:03 Blood Pressure 139/98 H 01/12/25 07:03 Pulse Oximetry 97 01/12/25 07:03 Oxygen Delivery Method Room Air 01/12/25 07:03 <Abbi Franklin MD - Last Filed: 01/14/25 00:02> Initial Vital Signs Temperature 98.0 F 01/12/25 07:03 Temperature Source Temporal Artery Scan 01/12/25 07:03 Pulse Rate 111 H 01/12/25 07:03 Respiratory Rate 20 01/12/25 07:03 Blood Pressure 139/98 H 01/12/25 07:03 Blood Pressure Mean 111 H 01/12/25 07:03 Blood Pressure Position Sitting 01/12/25 07:03 Pulse Oximetry 97 01/12/25 07:03 Oxygen Delivery Method Room Air 01/12/25 07:03 Vital Signs Temperature 98.0 F 01/12/25 07:03 Pulse Rate 111 H 01/12/25 07:03 Respiratory Rate 20 01/12/25 07:03 Blood Pressure 139/98 H 01/12/25 07:03 Pulse Oximetry 97 01/12/25 07:03 Oxygen Delivery Method Room Air 01/12/25 07:03 Temperature 98.0 F 01/12/25 07:03 Pulse Rate 111 H 01/12/25 07:03 Respiratory Rate 20 01/12/25 07:03 Blood Pressure 139/98 H 01/12/25 07:03 Pulse Oximetry 97 01/12/25 07:03 Oxygen Delivery Method Room Air 01/12/25 07:03 <Afia Alva MD - Last Filed: 01/12/25 15:07> Medications Administered Medications: Discontinued Medications Generic Name Dose Route Start Last Admin Trade Name Freq PRN Reason Stop Dose Admin Ketorolac Tromethamine 15 mg 01/12/25 07:58 01/12/25 08:30 Ketorolac 15 Mg/Ml Inj IVP 01/12/25 07:59 15 mg ONCE ONE Administration Ondansetron HCl 4 mg 01/12/25 07:58 01/12/25 08:30 Ondansetron 2 Mg/Ml Inj IVP 4 mg ONCE PRN Administration <Abbi Franklin MD - Last Filed: 01/14/25 00:02> Discontinued Medications Generic Name Dose Route Start Last Admin Trade Name Freq PRN Reason Stop Dose Admin Ketorolac Tromethamine 15 mg 01/12/25 07:58 01/12/25 08:30 Ketorolac 15 Mg/Ml Inj IVP 01/12/25 07:59 15 mg ONCE ONE Administration Ondansetron HCl 4 mg 01/12/25 07:58 01/12/25 08:30 Ondansetron 2 Mg/Ml Inj IVP 4 mg ONCE PRN Administration <Afia Alva MD - Last Filed: 01/12/25 15:07> Medical Decision Making MDM Narrative Medical decision making narrative: 1. Ureteral colic- much improved after Toradol Zofran. Patient noted to have 5 mm stone in the proximal left ureter previously. Today he has a 5 mm stone in the left mid ureter. A previously noted stone 2 mm along the superior aspect of the left kidney is now also present in the ureter. Additionally, he does have microscopic hematuria noted on urinalysis. CT does not show any evidence of diverticulitis colitis. 2. Nephrolithiasis with ureteral stones- creatinine normal at 0.8. CRP within normal limits. Urinalysis with 10-25 rbc's, no evidence of UTI. Given past history of parathyroid tumor, removal x2, patient has been referred to endocrinology. Calcium 10.5 3. Disposition -home at this time. Trial of pain medications at home. Patient instructed to return for fever, vomiting, worsening pain. Given age limiting Toradol which she had great relief with to 10 mg b.i.d. or every 12 hours. Five day supply given. For pain not relieved by Toradol Perry 5/325 1-2 tabs q.4-6 hours p.r.n. pain 14. Further pain medications will need to be managed through his primary MD. Urology consult suggest follow-up next week. At that time I have also suggested recheck of creatinine. <Afia Alva MD - Last Filed: 01/12/25 15:07> Medical Records Medical records reviewed: Yes I reviewed the patient's medical records <Afia Alva MD - Last Filed: 01/12/25 15:07> Lab Data Lab results reviewed: Yes I reviewed the patient's lab results <Afia Alva MD - Last Filed: 01/12/25 15:07> Labs: Lab Results 01/12/25 01/12/25 Range/Units 08:27 08:30 WBC 11.84 H (4.50-11.00) K/uL RBC 5.00 (4.30-5.90) m/uL Hgb 14.8 (13.5-17.5) gm/dL Hct 43.9 (37.0-53.0) % MCV 88 (80-100) fL MCH 30 (26-34) pg MCHC 34 (32-36) gm/dL RDW Coeff of Harpal 12.1 (11.5-15.5) % Plt Count 277 (140-440) K/uL Neut % (Auto) 80.3 H (42.0-72.0) % Lymph % (Auto) 10.5 L (20-44) % [place] % (Auto) 6.8 (0.0-11.0) % Eos % (Auto) 1.9 (0.0-7.0) % Baso % (Auto) 0.3 (0.0-3.0) % Neut # (Auto) 9.50 H (1.7-7.0) K/uL Lymph # (Auto) 1.20 (0.90-2.90) K/uL [place] # (Auto) 0.80 (0.00-0.90) K/UL Eos # (Auto) 0.20 (0.00-0.50) K/uL Baso # (Auto) 0.00 (0.00-0.30) K/uL Abs Immat Gran (auto) 0.00 (0.00-0.30) K/uL Imm/Tot Granulo (auto) 0.2 % Sodium 138 (135-149) mmol/L Potassium 3.6 (3.6-5.1) mmol/L Chloride 105 (96-114) mmol/L Carbon Dioxide 26 (20-32) mmol/L Anion Gap 7 (7-15) mEq/L BUN 17 (7-30) mg/dL Creatinine 0.8 (0.5-1.5) mg/dL Estimated Creat Clear 58.90 Estimated GFR 91 ml/min Glucose 129 H (60-115) mg/dL Lactate 2.9 H (0.5-1.9) mmol/L Calcium 10.5 (8.4-10.6) mg/dL Total Bilirubin 0.6 (0.1-1.5) mg/dL AST 39 H (12-35) U/L ALT 36 (4-50) U/L Alkaline Phosphatase 89 (40-150) U/L C-Reactive Protein < 0.5 L (0.5-1.0) mg/dL Total Protein 7.0 (6.0-8.3) g/dL Albumin 4.3 (3.3-5.0) g/dL Lipase 81 (23-300) U/L Urine Color Dark yellow (Yellow) Urine Appearance Clear (Clear) Urine pH 7.5 (5.0-8.5) Ur Specific [place] 1.020 (1.000-1.030) Urine Protein Negative (Negative) Urine Glucose (UA) Negative (Negative) Urine Ketones Negative (Negative) Urine Blood 2+ A (Negative) Urine Nitrite Negative (Negative) Urine Bilirubin Negative (Negative) Urine Urobilinogen 0.2 (0.2-1.0) Ur Leukocyte Esterase Negative (Negative) Urine RBC 10-25 A (0-2) Urine WBC 0-2 (0-5) Ur Squamous Epith Cells Few (None-Few) Calcium Oxalate Crystal Few A (None) Urine Bacteria None (None) <Abbi Franklin MD - Last Filed: 01/14/25 00:02> Lab Results 01/12/25 01/12/25 Range/Units 08:27 08:30 WBC 11.84 H (4.50-11.00) K/uL RBC 5.00 (4.30-5.90) m/uL Hgb 14.8 (13.5-17.5) gm/dL Hct 43.9 (37.0-53.0) % MCV 88 (80-100) fL MCH 30 (26-34) pg MCHC 34 (32-36) gm/dL RDW Coeff of [place]pal 12.1 (11.5-15.5) % Plt Count 277 (140-440) K/uL Neut % (Auto) 80.3 H (42.0-72.0) % Lymph % (Auto) 10.5 L (20-44) % [place] % (Auto) 6.8 (0.0-11.0) % Eos % (Auto) 1.9 (0.0-7.0) % Baso % (Auto) 0.3 (0.0-3.0) % Neut # (Auto) 9.50 H (1.7-7.0) K/uL Lymph # (Auto) 1.20 (0.90-2.90) K/uL [place] # (Auto) 0.80 (0.00-0.90) K/UL Eos # (Auto) 0.20 (0.00-0.50) K/uL Baso # (Auto) 0.00 (0.00-0.30) K/uL Abs Immat Gran (auto) 0.00 (0.00-0.30) K/uL Imm/Tot Granulo (auto) 0.2 % Sodium 138 (135-149) mmol/L Potassium 3.6 (3.6-5.1) mmol/L Chloride 105 (96-114) mmol/L Carbon Dioxide 26 (20-32) mmol/L Anion Gap 7 (7-15) mEq/L BUN 17 (7-30) mg/dL Creatinine 0.8 (0.5-1.5) mg/dL Estimated Creat Clear 58.90 Estimated GFR 91 ml/min Glucose 129 H (60-115) mg/dL Lactate 2.9 H (0.5-1.9) mmol/L Calcium 10.5 (8.4-10.6) mg/dL Total Bilirubin 0.6 (0.1-1.5) mg/dL AST 39 H (12-35) U/L ALT 36 (4-50) U/L Alkaline Phosphatase 89 (40-150) U/L C-Reactive Protein < 0.5 L (0.5-1.0) mg/dL Total Protein 7.0 (6.0-8.3) g/dL Albumin 4.3 (3.3-5.0) g/dL Lipase 81 (23-300) U/L Urine Color Dark yellow (Yellow) Urine Appearance Clear (Clear) Urine pH 7.5 (5.0-8.5) Ur Specific [place] 1.020 (1.000-1.030) Urine Protein Negative (Negative) Urine Glucose (UA) Negative (Negative) Urine Ketones Negative (Negative) Urine Blood 2+ A (Negative) Urine Nitrite Negative (Negative) Urine Bilirubin Negative (Negative) Urine Urobilinogen 0.2 (0.2-1.0) Ur Leukocyte Esterase Negative (Negative) Urine RBC 10-25 A (0-2) Urine WBC 0-2 (0-5) Ur Squamous Epith Cells Few (None-Few) Calcium Oxalate Crystal Few A (None) Urine Bacteria None (None) <Afia Alva MD - Last Filed: 01/12/25 15:07> Imaging Data CT scan - abdomen: Attestation: I have reviewed the pertinent imaging results. <Afia Alva MD - Last Filed: 01/12/25 15:07> My impression: to possibly 3 ureteral stones with left hydronephrosis. <Afia Alva MD - Last Filed: 01/12/25 15:07> Radiologist's impression: A partially obstructing 5 mm mid left ureteral stone is demonstrated on image 84 of series 2. This is located at the level of the L4 superior endplate. 1.5 cm superior to this stone is an additional nonobstructing 2 mm left ureteral stone. Moderate left hydronephrosis is demonstrated, increased from the prior study. The kidneys are normal in size, shape and attenuation. Multiple small stones are present in the bladder. The bladder is otherwise unremarkable. The prostate is moderately enlarged. The liver is normal in size, shape and attenuation. Tiny stones are noted in the gallbladder. No bile duct dilation is evident. The spleen is within normal limits. An unchanged 2 cm left adrenal adenoma is noted. The adrenal glands are otherwise unremarkable. The pancreas is within normal limits. No lymphadenopathy is evident. No free fluid is demonstrated. Colonic diverticulosis is noted along with a large amount of stool in the colon. The bowel is otherwise unremarkable. The lung bases are essentially clear, and heart size is normal. Calcified coronary arterial plaque is demonstrated. IMPRESSION: 1. Partially obstructing 5 mm mid left ureteral stone an additional nonobstructive stone 2 mm left ureteral stone. Moderate left hydronephrosis, increased from the prior study. 2. Multiple small bladder stones. 3. Moderate prostate enlargement. 4. Cholelithiasis. 5. Unchanged 2 cm left adrenal adenoma. 6. Colonic diverticulosis and possible constipation. <Afia Alva MD - Last Filed: 01/12/25 15:07> Discharge Plan Discharge Clinical Impression: Colic, ureteral, Nephrolithiasis <Abbi Franklin MD - Last Filed: 01/14/25 00:02> Patient Disposition: Home, Self-Care <Abbi Franklin MD - Last Filed: 01/14/25 00:02> Condition: Improved <Abbi Franklin MD - Last Filed: 01/14/25 00:02> Instructions: Kidney Stones (ED) <Abbi Franklin MD - Last Filed: 01/14/25 00:02> Additional Instructions: Increase fluids to stay well hydrated. Make appointment with Urology group for next week. At that time because of treatment with Toradol I would suggest a recheck of your creatinine or kidney function. For pain: Toradol 10 mg every 12 hours as needed for discomfort. For breakthrough pain you may use a medicine called Perry also known as hydrocodone and acetaminophen combination. This is a narcotic. Please do not use alcohol, take any other additional sedating medications or drive when on this medication. A side effect of Perry can be constipation so please use Colace, a stool softener. Line Return to the emergency room if you experience fever, increasing pain not controlled by the medication, vomiting or have the onset of other symptoms. <Abbi Franklin MD - Last Filed: 01/14/25 00:02> Prescriptions: New hydrocodone-acetaminophen 5-325 mg tablet 1 tab PO Q4-6H PRN (Reason: pain) Qty: 14 0RF Rx Instructions: may use 1-2 tabs every 4-6 hours as needed for discomfort. ketorolac 10 mg tablet 10 mg PO Q12H PRN (Reason: pain) Qty: 10 0RF Rx Instructions: 10 mg orally ;maximum total duration of 5 days from all oral, intranasal, or parenteral formulations No Action atorvastatin 10 mg tablet 10 mg PO DAILY escitalopram oxalate 10 mg tablet 10 mg PO DAILY fluticasone propion-salmeterol 250-50 mcg/dose blister with device 1 ea inhalation BID hydrochlorothiazide 12.5 mg tablet 12.5 mg PO DAILY losartan 50 mg tablet 75 mg PO BID metoprolol succinate 50 mg tablet extended release 24 hr 50 mg PO DAILY tamsulosin 0.4 mg capsule 0.8 mg PO DAILY amlodipine 5 mg tablet 5 mg PO DAILY albuterol sulfate 90 mcg/actuation HFA aerosol inhaler 2 puff inhalation Q4-6H PRN calcium citrate 200 mg (950 mg) tablet 200 mg PO QDAY fexofenadine 180 mg tablet 180 mg PO Q24H fluticasone propion-salmeterol [Advair Diskus] 250-50 mcg/dose blister with device 1 inh inhalation Q12H levothyroxine 112 mcg tablet 112 mcg PO DAILY prednisone 20 mg tablet PO multivitamin Tablet 1 tab PO QAM albuterol sulfate 90 mcg/actuation HFA aerosol inhaler 2 puff inhalation Q4-6H PRN (Reason: shortness of breath or wheezing) Qty: 6.7 0RF benzonatate 100 mg capsule 100 mg PO BID PRN (Reason: cough) Qty: 14 0RF <Abbi Franklin MD - Last Filed: 01/14/25 00:02> Follow Up/Referrals: Jimmy Ley MD [Primary Care Provider, Family Practice] <Abbi Franklin MD - Last Filed: 01/14/25 00:02> Stand Alone Forms: [facility] Info Instructions <Abbi Franklin MD - Last Filed: 01/14/25 00:02>
[2025-01-12 08:33] LABS: Lactate* 2.9 mmol/L (0.5-1.9)
[2025-01-12 08:36] LABS: Basophils Percent Auto 0.3 % (0.0-3.0); Eosinophils Percent Auto 1.9 % (0.0-7.0); Hematocrit 43.9 % (37.0-53.0); Hemoglobin* 14.8 gm/dL (13.5-17.5); Immature Granulocytes Pct Auto 0.2 %; Lymphocytes Percent Auto 10.5 % (20-44); Mean Corpuscular HGB Conc 34 gm/dL (32-36); Mean Corpuscular Hemoglobin 30 pg (26-34); Mean Corpuscular Volume 88 fL (80-100); Monocytes Percent Auto 6.8 % (0.0-11.0); Neutrophils Percent Auto 80.3 % (42.0-72.0); Platelet Count* 277 K/uL (140-440); RDW Coefficient of Variation % 12.1 % (11.5-15.5); White Blood Count* 11.84 K/uL (4.50-11.00)
[2025-01-12 08:37] LABS: Appearance Urine Clear (Clear); Bilirubin Urine Negative (Negative); Blood Urine 2+ (Negative); Color Urine Dark yellow (Yellow); Glucose Urine Negative (Negative); Ketones Urine Negative (Negative); Leukocyte Esterase Urine Negative (Negative); Nitrite Urine Negative (Negative); Protein Urine Negative (Negative); Urobilinogen Urine 0.2 (0.2-1.0); pH Urine 7.5 (5.0-8.5)
[2025-01-12 08:41] LABS: Slide Review Reflex No
[2025-01-12 08:49] LABS: Squamous Epithelial Cell Urine Few (None-Few); WBC Urine 0-2 (0-5)
[2025-01-12 08:50] LABS: Calcium Oxalate Crystals Urine Few
[2025-01-12 08:53] LABS: Albumin* 4.3 g/dL (3.3-5.0); Chloride* 105 mmol/L (96-114); Potassium* 3.6 mmol/L (3.6-5.1); Sodium* 138 mmol/L (135-149)
[2025-01-12 08:55] LABS: Blood Urea Nitrogen* 17 mg/dL (7-30); Creatinine* 0.8 mg/dL (0.5-1.5); Estimated Glomerular Filt Rate 91 ml/min
[2025-01-12 08:56] LABS: Alanine Aminotransferase* 36 U/L (4-50); Alkaline Phosphatase* 89 U/L (40-150); Anion Gap 7 mEq/L (7-15); Aspartate Amino Transferase* 39 U/L (12-35); Bilirubin Total* 0.6 mg/dL (0.1-1.5); Calcium* 10.5 mg/dL (8.4-10.6); Carbon Dioxide* 26 mmol/L (20-32); Glucose* 129 mg/dL (60-115); Lipase* 81 U/L (23-300)
[2025-01-12 09:01] LABS: C Reactive Protein* < 0.5 mg/dL (0.5-1.0)
--- NOTE | 2025-01-12 09:12 | CRLHL7_ITS ---
For Patients: As a result of the Century Cures Act, medical imaging exams and procedure reports are released immediately into your electronic medical record. You may view this report before your referring provider. If you have questions, please contact your health care provider. INDICATION: Abdominal pain and bloating. History of stones. TECHNIQUE: Volumetric helical scanning of the abdomen and pelvis was performed without contrast material. Coronal and sagittal reconstructions were obtained. COMPARISON: Abdomen/pelvis CT of 01/19/2021 FINDINGS: A partially obstructing 5 mm mid left ureteral stone is demonstrated on image 84 of series 2. This is located at the level of the L4 superior endplate. 1.5 cm superior to this stone is an additional nonobstructing 2 mm left ureteral stone. Moderate left hydronephrosis is demonstrated, increased from the prior study. The kidneys are normal in size, shape and attenuation. Multiple small stones are present in the bladder. The bladder is otherwise unremarkable. The prostate is moderately enlarged. The liver is normal in size, shape and attenuation. Tiny stones are noted in the gallbladder. No bile duct dilation is evident. The spleen is within normal limits. An unchanged 2 cm left adrenal adenoma is noted. The adrenal glands are otherwise unremarkable. The pancreas is within normal limits. No lymphadenopathy is evident. No free fluid is demonstrated. Colonic diverticulosis is noted along with a large amount of stool in the colon. The bowel is otherwise unremarkable. The lung bases are essentially clear, and heart size is normal. Calcified coronary arterial plaque is demonstrated. IMPRESSION: 1. Partially obstructing 5 mm mid left ureteral stone an additional nonobstructive stone 2 mm left ureteral stone. Moderate left hydronephrosis, increased from the prior study. 2. Multiple small bladder stones. 3. Moderate prostate enlargement. 4. Cholelithiasis. 5. Unchanged 2 cm left adrenal adenoma. 6. Colonic diverticulosis and possible constipation. Please note that all CT scans at this facility use dose modulation, iterative reconstruction, and/or weight-based dosing when appropriate to reduce radiation dose to as low as reasonably achievable. Dictated by Raza Jonas MD @ 01/12/2025 10:02:48 AM (Electronically Signed)
== END 2025-01-12 11:17 | disposition home or self-care (01) ==
PROVIDERS: Family Medicine; Emergency Provider Family Medicine; PCP Surgery
DX: N23 Unspecified renal colic (principal); N20.0 Calculus of kidney; I10 Essential (primary) hypertension; F41.9 Anxiety disorder, unspecified; R25.1 Tremor, unspecified; E03.9 Hypothyroidism, unspecified; E21.3 Hyperparathyroidism, unspecified; Z79.899 Other long term (current) drug therapy
CPT/HCPCS: 36415; 74176; 80053; 81001; 83605; 83690; 85025; 86140; 87086; 96374; 96375; 99284; J1885; J2405

== ENCOUNTER 2025-02-11 16:34 | Emergency (ER) | payer MEDICARE, SELFPAY ==
--- OUTSIDE RECORDS SUMMARY | 2025-02-11 16:35 | XMS_ITS | Clinical Summary ---
Author Organization [facility] Address [address] [place] [address] Care Team Providers Care District Court Administrator Name Role Phone Jimmy Ley MD Primary Care Provider [phone] Eve Gregg MD Unavailable [phone] Horace Espinal MD Unavailable [phone] [place] Hill[place] rodarte PharmD Unavailable [phone] Allergies Active Allergy Reactions Criticality Noted Date [...] hours. 60 Each 3 07/08/20 23 Active fluticasone (50 mcg per actuation) nasal solution (FLONASE)Indicatio ns:Chronic frontal sinusitis Inhale 1 [place] in both nostrils once daily. 16 g 06/12/20 24 Active Calcium Citrate 250 mg calcium tabletIndications: Osteopenia, [...] daily. 90 Tablet 3 07/27/20 24 Active verapamil SR (CALAN SR) 240 mg extended release tabletIndications: PVC (premature ventricular contraction) Take 1 Tablet (240 mg) by mouth once daily with a meal. 90 Tablet 3 09/14/19 25 Active levothyroxine (SYNTHROID) 100 mcg tabletIndications: Congenital hypothyroidism with diffuse goiter Take 1 Tablet (100 mcg) by mouth before breakfast. 90 Tablet 3 09/29/19 25 Active cholecalciferol (Vitamin D-3) 2,000 unit capsule Take 2,000 units by mouth once daily. Active tamsulosin 0.4 mg capsuleIndications :BPH without urinary obstruction Take 1 Capsule (0.4 mg) by mouth once daily in the evening. 1 capsule a day. 01/30/20 25 Active albuterol HFA 90 mcg/actuation inhalerIndications :Chronic bronchitis, unspecified chronic bronchitis type (HC) Inhale 1-2 Puffs by mouth 4 times daily if needed for Shortness of Breath 1st choice. 8.5 g 3 02/03/20 25 Active albuterol HFA (PRO-AIR; VENTOLIN; PROVENTIL) 90 mcg/actuation inhalerIndications :Chronic bronchitis, unspecified chronic bronchitis type (HC) Inhale 2 Puffs by mouth 4 times daily if needed for Shortness of Breath 1st choice. 8.5 g 3 08/30/19 24 025 Discontin ued(Reord er (E-cancel not sent)) tamsulosin 0.4 mg capsuleIndications :BPH without urinary obstruction Take 2 Capsules (0.8 mg) by mouth once daily in the evening. 180 Capsule 2 07/26/20 24 025 Discontin ued(*Medi cation adjustmen t) cholecalciferol, Vitamin D3, 25 mcg (1,000 unit) chew chewable tablet Chew 2 Tablets (2,000 units) by mouth once daily. 40 units = 1 mcg (1000 units = 25 mcg) 08/01/20 24 025 Discontin ued(*Medi cation adjustmen t) ketorolac 10 mg tablet Take 10 mg by mouth one time if needed. prn for pain 01/13/20 25 025 Discontin ued(*Tammy ent states no longer taking) HYDROcodone-acetam inophen (5-325 mg/tablet) Take 1 Tablet by mouth one time if needed. prn for pain 01/13/20 25 025 Discontin ued(*Tammy ent states no longer taking) Active Problems Problem Noted Date Diagnosed Date [...] Encounters Date Type Department Care Team Description 02/02/2025 3:15 PM CDT Office Visit [facility] [address] [place] [address] Jimmy Ley MD Preoperative Exam (ROBOTIC AQUABLATION OF PROSTATE 02/22/25 Dr. Bal at [place]) 02/02/2025 Travel 01/29/2025 9:05 AM CDT Office Visit [facility] [address] [place] [address] Ana Singer MD Kidney Problem (Patient states about 3am this morning patient had pain with brown/red urine. He believes he may be passing a second stone.) 01/29/2025 Travel 01/12/2025 Orders Only [facility] Scanner 1 scan: (1-Ord) [place], CT ABDOMEN PELVIS WO CON, 01/12/2025 12/14/2024 9:10 AM CDT [facility] [address] [facility] [address] Ana Singer MD Urinary Problem (Patient states dark brown yesterday has gotten minute clerk since then/No pain with urination, frequency and urgency has gotten better.) 12/14/2024 Travel 11/24/2024 3:15 PM CDT Orders Only [facility] [address] [place] [id number] Lab, [place] [facility] 11/23/2024 Travel 11/17/2024 9:00 AM CDT Office Visit [facility] [address] [place] [phone] Olga Salmon MD Follow Up (Follow up after Echo ) 11/17/2024 Travel 11/12/2024 Travel from Last 3 Months Immunizations Immunization Administration [...] Relation Name Comments Other Brother James Hepatitis: senior reservations agent tasha Psychiatric illness Brother James Schizoph renic [...] or isolated from those around you? 0 01/29/2025 Financial Resource Strain Answer Date R ecorded Difficulty of Paying Living Expenses 3 01/29/2025 Difficulty of Paying Living Expenses Not on file 01/29/2025 Food Insecurity Answer Date Recorded Do you worry your food will run out before you are able to buy more? 1 01/29/2025 Transportation Needs Answer Date Record ed Does lack of transportation keep you from medica l appointments? 1 01/29/2025 Does lack of transportation keep you from work, meetings or getting things that you need? 1 01/29/2025 Housing Stability Answer Date Recorded What is your housing situation today? 1 01/29/2025 Utilities Answer Date Recorded Do you have trouble paying f or utilities (for example, heat, electricity, water, phone)? 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 Not on file Not on file Not on gagandeep e Not on file Not on file Not on file Not on file Obstetrics History Last Filed Vital Signs Vital Sign Reading Time Taken Comments Blood Pressure 131/74 02/02/2025 3:22 PM CDT Pulse 70 02/02/2025 3:22 PM CDT Temperature 36.9 C (98.4 F) 12/14/2024 9:25 AM CDT Respiratory Rate 16 01/27/2024 11:15 AM CDT Oxygen Saturation 98% 02/02/2025 3:22 PM CDT Inhaled Oxygen Concentration - - Weight 90.5 kg (199 lb 8 oz) 02/02/2025 3:22 PM CDT Height 170.2 cm (5' 7) 02/02/2025 3:22 PM CDT Body Mass Index 31.25 02/02/2025 3:22 PM CDT Plan of Treatment Upcoming Encounters Date Type Department Care Team (Late st Contact Info) Description 02/18/2025 4:00 PM CDT Ancillary Procedure [facility] [address] [place] [address] 02/22/2025 10:27 AM CDT Hospital Encounter [facility] [address] [place] [address] Hossein Bal MD [address] [place] [address] [place] [id number] 02/22/2025 10:27 AM CDT - 02/22/2025 12:02 PM CDT Surgery [facility] [address] [place] [address] Hossein Bal MD [address] [place] [address] [place] [address] ROBOTIC AQUABLATION OF PROSTATE 04/15/2025 10:20 AM CDT Office Visit [facility] [address] [place] [id number] Eve Gregg MD [address] [place], [place] [id number] Scheduled Procedures Name Priority Associated Diagnoses Date/Ti me ROBOTIC AQUABLATION OF PROSTATE Tier 2 LOWER URINARY TRACT SYMPTOMS DUE TO BENIGN PROSTATIC HYPERPLASIA 02/22/2025 10:27 AM CDT Health Maintenance Due Date Last Done Comments Influenza Vaccine (#1) 2025 , 05/13/2020, 05/13/2020, Additional history exists Tetanus booster 06/08/2025 06/08/2015, 10/30/2005 Medicare Wellness for age 65+ 07/28/2025, 07/08/2023, 07/03/2022, Additional history exists Depression screening for age 12+ 07/30/2025 07/30/2024, 07/27/2024, 07/24/2024, Additional history exists BMI (ht and wt on same day) for age 18+ 02/02/2026 02/02/2025, 07/27/2024, 01/27/2024, Additional history exists Hepatitis B series for 19+ Completed 08/13, 11/23/2003, 10/18/2003 Pneumococcal series for age 50+ Completed 05/21/2017, 05/23/2015, 11/03/2009 Hepatitis C screening for ag e 18-79 Completed 05/27/2018 Zoster (shingles) series for age 50+ Completed 06/01/2019, 05/13/2019, 02/03/2019, Additional history exists RSV vaccine for adults or Completed 06/05/2023 COVID-19 vaccine series Completed 12/12/19, 06/12/2024, 12/03/2023, Additional history exists Medical Devices Implanted Type Area Black Ash Worker Device Identifier Shelf Expiration Date Model / Serial / Lot Dura Neuro 3x3in Durepair Sut - [id number] Implanted:Qty: 1 on 09/07/2020 by Terence Napoles MD at [facility] Right: Cranium [employer] 10/09/2022 [id number] / / [id number] Screw Neuro 4mm Matrixneuro Slf Drill Titnm - [id number] Implanted:Qty: 21 on 09/07/2020 by Terence Napoles MD at [facility] Right: Cranium J And J Depuy CMF [id number] 4.01 / / Plate Facial 6 Hole Synthes Strut - [id number] Implanted:Qty: 1 on 09/07/2020 by Terence Napoles MD at [facility] Right: Cranium J And J Depuy CMF [id number] / / Remedios Hole Cover Neuro 24mm Synthes Low Pro Titnm - [id number] Implanted:Qty: 3 on 09/07/2020 by Terence Napoles MD at [facility] Right: Cranium J And J Depuy CMF [id number] / / Procedures Procedure Name Priority Date/Time Associated Diagnosis Comments EKG 12 LEAD Routine 02/04/2025 10:10 AM CDT BPH without urinary obstruction [place] READING EKG - NO CHARGE, COMP ONLY Routine 02/04/2025 10:09 AM CDT BPH without urinary obstruction HEMOGLOBIN Routine 02/02/2025 4:25 PM CDT Primary hyperparathyroidism (HC) PTH,INTACT Routine 02/02/2025 4:25 PM CDT Primary hyperparathyroidism (HC) POTASSIUM Routine 02/02/2025 4:25 PM CDT BPH without urinary obstruction SCAN-CT INTERPRETATION 01/12/2025 12:00 AM CDT URINALYSIS MICROSCOPIC Routine 12/14/2024 9:18 AM CDT Urine discoloration URINE CULTURE Routine 12/14/2024 9:18 AM CDT Urine discoloration URINALYSIS MACROSCOPIC - [facility] ONLY POC DIP ([facility]) Routine 12/14/2024 9:18 AM CDT Urine discoloration TSH Routine 11/24/2024 3:10 PM CDT Hypothyroidism, unspecified type ANTI HCV Routine 05/27/2018 8:45 AM CDT Need for hepatitis C screening test from Last 3 Months or Most Recently Relevant to Health Maintenance Results * EKG 12 LEAD (02/04/2025 10:10 AM CDT) us Jimmy Ley MD EKG ORD Final Resu lt * [place] READING EKG - NO CHARGE, COMP ONLY (02/04/2025 10:09 AM CDT) us Jimmy Ley MD PB - PROVIDER READINGS Fin al Result * HEMOGLOBIN (02/02/2025 4:25 PM CDT) HEMOGLOBIN 13.5 13.2 - 17.1 g/dL [place] [employer] Sat[facility] Blood BLOOD SPECIMEN / Unknown 02/02/2025 4:25 PM CDT 02/02/2025 4:26 PM CDT us Jimmy Ley MD HEMATOLOGY Final Resu lt Performing Organization Address City/[facility]/ZIP Co de Phone Number [employer] [facility] [address] [place] [phone], [facility] [address] [place] [phone] * POTASSIUM (02/02/2025 4:25 PM CDT) POTASSIUM 4.0 3.5 - 5.3 mmol/L [facility] Blood BLOOD SPECIMEN / Unknown 02/02/2025 4:25 PM CDT 02/02/2025 4:26 PM CDT us Jimmy Ley MD CHEMISTRY Final Resu lt [employer] [facility] [address] [place] [address], [employer] [facility] [address] [place] [address] * (ABNORMAL) PTH,INTACT (02/02/2025 4:25 PM CDT) Pathologist [facility] PARATHYROID HORMONE, INTACT 101(H) 16 - 77 pg/mL [place] [facility] bronwyn Covarrubias Comment: Interpretive Guide Intact PTH Calcium ------- Normal Parathyroid Normal Normal Hypoparathyroidism Low or Low Normal Low Hyperparathyroidism Primary Normal or High High Secondary High Normal or Low Tertiary High High Non-Parathyroid Hypercalcemia Low or Low Normal High CALCIUM 10.2 8.6 - 10.3 mg/dL [facility] bronwyn Covarrubias Blood BLOOD SPECIMEN / Unknown 02/02/2025 4:25 PM CDT 02/02/2025 4:26 PM CDT us Jimmy Ley MD SEND OUTS Final Resu lt [employer] [address] [phone], [place] [facility] [address] [place] [phone] * SCAN-CT INTERPRETATION (01/12/2025 12:00 AM CDT) Anatomical Region Laterality Modality Other us Scanner OTHER Final Result * (ABNORMAL) POCT Urinalysis Dipstick Only [[id number]] (12/14/2024 9:18 AM CDT) Pathologist [facility] PH 7.5 5.0 - 8.0 [facility] SPECIFIC GRAVITY 1.015 1.001 - 1.035 [facility] GLUCOSE NEGATIVE NEGATIVE [facility] BILIRUBIN NEGATIVE NEGATIVE [facility] KETONES NEGATIVE NEGATIVE [facility] OCCULT BLOOD 2+(A) NEGATIVE [facility] PROTEIN NEGATIVE NEGATIVE [facility] NITRITE NEGATIVE NEGATIVE [facility] LEUKOCYTE ESTERASE NEGATIVE NEGATIVE [facility] Urine URINE SPECIMEN / Unknown 12/14/2024 9:18 AM CDT 12/14/2024 9:19 AM CDT Ana Singer MD URINE Final Resul t Performing Organization Address City/[facility]/ZIP Co de Phone Number [email or web address] [address] [place] [address], [facility] [address] [place] [address] * (ABNORMAL) URINALYSIS MICROSCOPIC [86141.1] - routine (12/14/2024 9:18 AM CDT) RBC 51-100(A) 0-2, None Seen /HPF 12/14/2024 2:35 PM CDT [facility] WBC 0-2 0-2, 3-5, None Seen /HPF 12/14/2024 2:35 PM CDT [facility] BACTERIA None Seen None Seen, Rare, Few Bacteria/ HPF 12/14/2024 2:35 PM CDT [facility] EPITHELIAL CELLS None Seen None Seen, Few Epi/HPF 12/14/2024 2:35 PM CDT [facility] HYALINE CASTS 0-2 0-2, 3-5 /LPF 12/14/2024 2:35 PM CDT [facility] Urine URINE SPECIMEN / Unknown Non-Blood / Unknown 12/14/2024 9:18 AM CDT 12/14/2024 9:18 AM CDT Ana Singer MD URINE Final Resul t [facility] [address] [place] [address], [place] * URINE CULTURE [23099.2] (12/14/2024 9:18 AM CDT) [facility] CULTURE No growth (<1,000 CFU/mL) 12/15/2024 1:54 PM CDT [facility] Urine URINE SPECIMEN / Unknown Non-Blood / Unknown 12/14/2024 9:18 AM CDT 12/14/2024 9:18 AM CDT us Ana Singer MD MICROBIOLOGY Final Resul t Performing Organization Address City/[facility]/ZIP Co de Phone Number [facility] [address] [place] [address], [place] * TSH (11/24/2024 3:10 PM CDT) [facility] TSH 1.36 0.40 - 4.50 mIU/L [place] [facility] Blood BLOOD SPECIMEN / Unknown 11/24/2024 3:10 PM CDT 11/24/2024 3:13 PM CDT Narrative [facility] - 11/25/2024 3:39 AM CDT FASTING:NO FASTING: NO us Jimmy Ley MD CHEMISTRY Final Resu lt Performing Organization Address City/[facility]/ZIP Co de Phone Number [facility] [address] [place] [address], [facility] [address] [place] [address] * ANTI HCV [91241.2] (05/27/2018 8:45 AM CDT) [facility] HEPATITIS C ANTIBODY Non-React rashida Non-React rashida 05/27/2018 1:59 PM CDT [facility] Comment:Antibodies to HCV no t detected; does not exclude the possibility of exposure to HCV. Blood BLOOD SPECIMEN / Unknown Venipuncture / Unknown 05/27/2018 8:45 AM CDT 05/27/2018 8:45 AM CDT Jimmy Ley MD SEND OUTS Final Resu lt [facility] 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
--- OUTSIDE RECORDS SUMMARY | 2025-02-11 16:35 | XMS_ITS | Clinical Summary ---
Author Organization [facility] Address [address] , [address] [place] [address] Phone Care Team Providers Care Application Services Manager Name Role Phone Mohamud Christianson Unavailable Unavailable Conditions or Problems Problem Name Problem Code Onset Date Status Entry Date Provider Comment Standard Description Annotate Primary cough headache 52017125 (SNOMED CT) Active Petr Sanderson MD Cough headache syndrome Cough headache syndrome 98474636 (SNOMED CT) Active Petr Sanderson MD Cough headache syndrome Essential tremor 025225560 (SNOMED CT) Active Raza Weir MD Essential tremor SYNCOPE 300638990 (SNOMED CT) Active Asim Licona DO Syncope Medications Medication Instructions Start Date Stop Date Generic Name NDC Provider PRIMIDONE 50 MG TABS Week #1 take 1/2 in PM. Week #2 take 1/2 bid. Week #3 take 1/2 in AM and 1 in PM. Week #4 and on take 1 bid 3 PRIMIDONE [id number] Raza Weir MD Medications Administered No information [...] Procedures Code Procedure Name Date Entry Date [id number] MRA-Head W/O [id number] MRA-Neck W/O CPT-32163 MRA Head W/O CPT-88769 MRA Neck W/O [id number] Neurosurgery - NSA Referral ORDERS Patient Instructions ORDERS Follow up [id number] MRI-Brain W/WO Vital Signs No information available. Immunizations No information available. Advance Directives No information available.
[2025-02-11 16:36] VITALS: BP 180/94; PULSE 65; RESP 18; TEMP 37.3; O2SAT 98; BMI 31.2
--- OUTSIDE RECORDS SUMMARY | 2025-02-11 16:36 | XMS_ITS | Continuity of Care Document ---
Author Organization [place] [facility] Address [address] [place] [address] Assessment No assessment recorded. Plan of Treatment Reminders Order Date Submit Date Provider Last Modified By Organization Details Last Modified Time Details Appointments HOSPITAL 90 2024 10:45A Kay peacock MD Not available Not available Not available POST OP 10 2024 02:40P Kay peacock MD Not available Not available Not available Lab urinalysi s, dipstick 2024 025 [email or web address] [facility], [address], [place], [address], 01/20/2025 12:30:55 Referral None recorded. Procedures None recorded. Surgeries None recorded. Imaging None recorded. Medication Orders docusate sodium 100 mg capsule 2024 025 [id number], [address], [address], 01/20/2025 12:30:58 Patient TargetsNo targets recorded. Patient InstructionsNo instructions recorded. Reason for Referral None Reported. Results Created Date Observation Date Name Description Value Unit Range Abnormal Flag Note LastModifiedBy Organization Detail LastModifiedTime 01/21/2001/20/2025 urina lysis , dipst ick BLOOD Negati ve Not Available [facility] [address], [place], [address], 01/18/2025 13:55:11 01/21/2001/20/2025 urina lysis , dipst ick BILIRUBIN Negati ve Not Available [facility] [address], [place], [address], 01/18/2025 13:55:11 01/21/20 25 01/20/2025 urina lysis , dipst ick UROBILINOGEN 0.2 mg/dL (Norm) Not Available [facility] [address], [place], [address], 01/18/2025 13:55:11 01/21/20 25 01/20/2025 urina lysis , dipst ick KETONES Negati ve Not Available [facility] [address], [place], [address], 01/18/2025 13:55:11 01/21/20 25 01/20/2025 urina lysis , dipst ick PROTEIN Negati ve Not Available [facility] [address], [place], [address], 01/18/2025 13:55:11 01/21/20 25 01/20/2025 urina lysis , dipst ick NITRITES Negati ve Not Available [facility] [address], [place], [address], 01/18/2025 13:55:11 01/21/20 25 01/20/2025 urina lysis , dipst ick GLUCOSE Negati ve Not Available [facility] [address], [place], [address], 01/18/2025 13:55:11 01/21/20 25 01/20/2025 urina lysis , dipst ick p.H. 5.5 Not Available [facility] [address], [place], [address], 01/18/2025 13:55:11 01/21/20 25 01/20/2025 urina lysis , dipst ick S.G. (Specific [place]) 1.020 Not Available [facility] [address], [place], [address], 01/18/2025 13:55:11 01/21/20 25 01/20/2025 urina lysis , dipst ick LEUKOCYTES Negati ve Not Available [facility] [address], [place], [address], 01/18/2025 13:55:11 12/24/19 25 12/23/2024 CT ABD wo&W & pelv wo&W (no oral cont) No observ ation record ed. [facility] [address], [place], [address], 12/28/2024 17:00:21 01/16/20 25 01/12/2025 CT, abdom en + pelvi s, w/o contr ast No observ ation record ed. [email or web address] Not Available 2024 13:56:58 Result Notes None recorded. Problems Name Problem SNOMED Code Status Onset Date Resolution Date Notes Provider Name and Address Organization Details Recorded Time Incomplete emptying of urinary bladder 769322459 Active 2024 Hossein peacock MD [address] [place] [address],[address] [place] [address], [address], [facility] 5 17:06:47 Nocturia 422317378 Active 2024 Hossein peacock MD [address] [place] [address],[address], [place], [address], [facility] 5 13:32:01 Lower urinary tract symptoms due to benign prostatic hypertrophy 2571548261644 1 Active 2024 Hossein peacock MD [address] [place] [address],[address], [place], [address], [facility] 12:29:52 Endy hematuria 788383283 Active 2024 Hossein peacock MD [address] [place] [address],[address], [place], [address], [facility] 09:13:43 Ureteric stone 21330349 Active 2024 Hossein peacock MD [address] [place] [address],[address], [place], [address], [facility] 12:29:55 Urinary bladder stone 75370627 Active 2024 Hossein peacock MD [address] [place] [address],[address], [place], [address], [facility] 12:29:59 Hyperparath yroidism 79175775 Active 2024 CATHRYN GARCIAS PA-C [address] [place] [address],[address], [place], [address], [facility] 13:55:12 Acute constipatio n 249755601 Active 2024 CATHRYN GARCIAS PA-C [address] [place] [address],[address], [place], [address], [facility] 12:29:25 Problem Notes None recorded. Procedures Surgical History Date Name Laterality Status Provider Name and Address Organization Details Recorded Time 025 TRUS- Volume size only completed Hossein Bal MD [address] [place] [address],[address], [place], [address], [facility] 12/29/2024 13:02:29 025 CystoscopyMale completed Hossein Bal MD [address] [place] [address],[address], [place], [address], [facility] 12/29/2024 12:29:40 025 Bladder Scan completed Jazmín Brown [facility] 12/01/2024 16:15:59 025 Bladder Scan completed Shirley Johansen [facility] 10/19/2024 14:05:57 025 [facility] [place] - UroCuff completed Shirley Johansen [facility] 10/19/2024 14:08:02 025 Bladder Scan completed Aria [facility]In[facility] 09/18/2024 12:27:10 [facility]16 [facility] 09/18/2024 12:26:01 987 thyroidectomy completed [facility] Bowman-Ina [facility] 09/18/2024 12:25:19 987 parathyroidectomy completed [facility]man[facility]In[facility] 09/18/2024 12:25:29 Imaging Results None recorded. Procedure Notes None recorded. Medical Equipment None Reported. Allergies Allergen ID Allergen Name Allergen Category Reaction Reaction Severity Criticality Documentation Date Start Date Code Code System Note Provider Name and Address Organization Details Recorded Time 444631 banana extract food,medi cation Not available Not available Not available 09/18/20242020 81257 9 RxNorm unrec ogniz ed react ion (text : GI Upset , code: 47348 5008) (from ext nal sourc e) [facility] 12:14:03 324533 diatrizoa te meglumine medicatio n hives Not available Not available 09/18/20242007 3320 RxNorm IV @ anw for CT/MR I scan: sever e Hives ! [facility] 5 12:14:11 258409 bupropion Not available other Not available Not available 09/18/20242007 16317 RxNorm Wellb utrin Tremu lousn ess/a nxiet y [facility] 5 12:14:14 670935 egg extract food,medi cation Not available Not available Not available 09/18/20242020 31095 15 RxNorm No probl em with flu shot unrec ogniz ed react ion (text : GI Upset , code: 46666 5008) (from ext nal sourc e) Aliciasteve carbajal [place] - [facility] 5 12:14:17 281989 raspberry extract food,medi cation Not available Not available Not available 09/18/20242020 38755 69 RxNorm unrec ogniz ed react ion (text : GI Upset , code: 83329 5008) (from exter nal sour e) [facility] 5 12:14:20 498006 norfloxac in medicatio n hives Not available Not available 09/18/20242007 7517 RxNorm [facility] Bowman- Allan [facility] 5 12:14:22 844886 wheat preparati on food,medi cation diarrhea Not available Not available 09/18/20242020 03657 52 RxNorm Patie nt repor ts king borja's in [facility] 5 12:14:25 Medications Name Sig Start Date Stop Date Status Note LastModified by Organization Details LastModified Time verapamil ER (SR) 120 mg tablet,exte nded release TAKE ONE TABLET BY MOUTH EVERY DAY WITH MEALS* 09/18 completed Not Available Not Available Not Available losartan 50 mg tablet TAKE ONE TABLET BY MOUTH ONE TIME DAILY* active Not Available Not Available No t Available prednisone 10 mg tablet Take 4 Tablets by mouth once daily with a meal for 3 days, 3 TabS once daily for 3 days, 2 Tabs once daily for 3 days, THEN 1 Tab once daily for 3 days.* 09/18 completed Not Available Not Available Not Available doxycycline hyclate 100 mg capsule TAKE ONE CAPSULE BY MOUTH TWICE DAILY* 09/18 completed Not Available Not Available Not Available atorvastati n 10 mg tablet TAKE ONE TABLET BY MOUTH ONE TIME DAILY* active Not Available Not Available No t Available metoprolol succinate ER 50 mg tablet,exte nded release 24 hr Take 1 Tablet (50 mg) by mouth once daily. Take with a 25mg tablet to equal 75mg a day* 12/01 completed Not Available Not Available Not Available hydrocodone 5 mg-acetamin ophen 325 mg tablet TAKE 1-2 tabs BY MOUTH every 4-6 hours as needed for discomfor t.* active Not Available Not Available No t Available prednisone 20 mg tablet Take 2 Tablets (40 mg) by mouth once daily with a meal for 5 days.* 09/18 completed Not Available Not Available Not Available methylpredn isolone 4 mg tablet TAKE 8 TABLETS BY MOUTH 12 HOURS PRIOR TO IV CONTRAST, AND TAKE 8 TABS 2 HOURS PRIOR TO IV CONTRAST. * 09/18 completed Not Available Not Available Not Available fexofenadin e 180 mg tablet Take 1 tablet every day by oral route. active Not Available Not Available No t Available amlodipine 5 mg tablet TAKE ONE TABLET BY MOUTH ONE TIME DAILY* 12/01 completed Not Available Not Available Not Available ketorolac 10 mg tablet TAKE 1 TABLET BY MOUTH every 12 hours As Needed for pain ;maximum total duration of 5 days from all oral, intranasa l, or parentera l formulati ons* active Not Available Not Available No t Available levothyroxi ne 100 mcg tablet TAKE ONE TABLET BY MOUTH ONE TIME DAILY BEFORE BREAKFAST * active Not Available Not Available No t Available calcium citrate 250 mg tablet Take 2 tablets twice a day by oral route. active Not Available Not Available No t Available tamsulosin 0.4 mg capsule TAKE ONE CAPSULE BY MOUTH ONE TIME DAILY* active Not Available Not Available No t Available cephalexin 500 mg capsule TAKE 1 CAPSULE BY MOUTH DIRECTED* active Not Available Not Available No t Available levothyroxi ne 125 mcg tablet TAKE ONE TABLET BY MOUTH ONE TIME DAILY IN THE MORNING BEFORE BREAKFAST * 12/01 completed Not Available Not Available Not Available prednisone 50 mg tablet Take 1 tablet [address] scan. Then take 1 tablet [address] scan. Then take 1 tablet [address] scan.* active Not Available Not Available No t Available docusate sodium 100 mg capsule Take 1 capsule every day by oral route as directed for 30 days, for constipat ion. 2024 active Not Available Not Available Not Avai lable verapamil ER (SR) 240 mg tablet,exte nded release TAKE ONE TABLET BY MOUTH EVERY DAY WITH MEALS* active Not Available Not Available No t Available metoprolol succinate ER 25 mg tablet,exte nded release 24 hr Take 1 Tablet (25 mg) by mouth once daily. Take with a 50mg tablet to equal a total 75mg a day* 12/01 completed Not Available Not Available Not Available levothyroxi ne 112 mcg tablet Take 1 Tablet (112 mcg) by mouth before breakfast .* 09/18 completed Not Available Not Available Not Available amoxicillin 875 mg-potassiu m clavulanate 125 mg tablet TAKE ONE TABLET BY MOUTH TWICE DAILY WITH MEALS FOR 14 DAYS* 09/18 completed Not Available Not Available Not Available escitalopra m 10 mg tablet TAKE ONE TABLET BY MOUTH ONE TIME DAILY* active Not Available Not Available No t Available hydrochloro thiazide 12.5 mg tablet TAKE ONE TABLET BY MOUTH ONE TIME DAILY* active Not Available Not Available No t Available Benadryl Allergy 50 mg tablet Take 1 tablet [address] scan. 2024 active Not Available Not Available Not Darian adair Vitals Date Recorded Body height Body mass index (BMI) Body weight Provider Name and Address Organization Details Last Updated DateTime 01/20/2025 172.09 cm 31.9 kg/m2 77807.21 g Heidy Sanders [facility] 01/20/2025 12:06:23 Social History Question Answer Notes LastModified by Organizat ion Details LastModified Time Tobacco Smoking Status Never Smoker Enriqueta carbajal [facility] 10/27/2024 12:09:21 Do You Have An Advance Directive? Yes Information not available 09/18/2024 What Is Your Level Of Caffeine Consumption? Moderate Information not available 09/18/2024 When Did You Quit Smoking? 16+yearssince silvina flores Information not available 10/27/2024 Do You Have A Medical Power Of Presentation Manager? No Information not available 09/18/2024 What Was The Date Of Your Most Recent Tobacco Screening? 12/29/2024 [email or web address] Information not available 12/29/2024 How Much Tobacco Do You Smoke? No Information not available 09/18/2024 Has Tobacco Cessation Counseling Been Provided? No Information not available 09/18/2024 Sex: Male Functional Status Question Answer Note LastModified by Organizat ion Details LastModified Time Do you use any illicit or recreational drugs? No Information not available 09/18/2024 Do you or have you ever used any other forms of tobacco or nicotine? No Information not available 09/18/2024 What is your level of alcohol consumption? None Information not available 09/18/2024 Mental Status None recorded. Family History Relationship Description Onset Age of this Age Resolved Age Notes LastModified by Organization Details LastModified Time Mother Malignant tumor of thyroid gland [place] Not available 09/18/2024 12:24:25 Mother Family history of cancer of colon [place] Not available 09/18/2024 12:24:31 Paternal Grandfather Family history of malignant neoplasm of prostate [place] Not available 09/18/2024 12:24:52 Medical History Condition Response Sexually Transmitted Infection N Diabetes N Other Y Bleeding Disorder N High Blood Pressure Y Kidney Stones Y High Cholesterol Y GERD/Acid Reflux N Heart Disease N Cancer Y Depression Y Lung Disease N Immunizations Vaccine Type Date Status Note Provider Nam e and Address Organization Details Recorded Time Influenza, split virus, trivalent, preservative 1 completed Not Available [facility] 01/20/2025 11:34:41 Influenza, split virus, quadrivalent, PF 3 completed Not Available [facility] 01/20/2025 11:34:41 Influenza, high-dose, trivalent, PF 6 completed Not Available [facility] 01/20/2025 11:34:41 Influenza, adjuvanted, trivalent, PF 7 completed Not Available [facility] 01/20/2025 11:34:41 pneumococcal polysaccharide PPV23 7 completed Not Available [facility] 01/20/2025 11:34:41 Influenza, adjuvanted, trivalent, PF 8 completed Not Available [facility] 01/20/2025 11:34:41 zoster recombinant 9 completed Not Available [facility] 01/20/2025 11:34:41 Influenza, adjuvanted, trivalent, PF 9 completed Not Available [facility] 01/20/2025 11:34:41 zoster recombinant 9 completed Not Available [facility] 01/20/2025 11:34:41 Influenza, adjuvanted, quadrivalent, PF 0 completed Not Available [facility] 01/20/2025 11:34:41 COVID-19, mRNA, LNP-S, PF, 100 mcg/0.5mL dose or 50 mcg/0.25mL dose 1 completed Not Available [facility] 01/20/2025 11:34:41 COVID-19, mRNA, LNP-S, PF, 100 mcg/0.5mL dose or 50 mcg/0.25mL dose 1 completed Not Available [facility] 01/20/2025 11:34:41 Influenza, high-dose, quadrivalent, PF 1 completed Not Available [facility] 01/20/2025 11:34:41 COVID-19, mRNA, LNP-S, PF, 100 mcg/0.5mL dose or 50 mcg/0.25mL dose 1 completed Not Available [facility] 01/20/2025 11:34:41 COVID-19, mRNA, LNP-S, PF, 100 mcg/0.5mL dose or 50 mcg/0.25mL dose 2 completed Not Available [facility] 01/20/2025 11:34:41 COVID-19, mRNA, LNP-S, bivalent, PF, 50 mcg/0.5 mL or 25mcg/0.25 mL dose 2 completed Not Available [facility] 01/20/2025 11:34:41 Influenza, high-dose, quadrivalent, PF 2 completed Not Available [facility] 01/20/2025 11:34:41 COVID-19, mRNA, LNP-S, bivalent, PF, 50 mcg/0.5 mL or 25mcg/0.25 mL dose 3 completed Not Available [facility] 01/20/2025 11:34:41 COVID-19, mRNA, LNP-S, PF, 50 mcg/0.5 mL 3 completed Not Available [facility] 01/20/2025 11:34:41 Influenza, high-dose, quadrivalent, PF 3 completed Not Available [facility] 01/20/2025 11:34:41 RSV, recombinant, protein subunit RSVpreF, adjuvant reconstituted, 0.5 mL, PF 3 completed Not Available [facility] 01/20/2025 11:34:41 COVID-19, mRNA, LNP-S, PF, 50 mcg/0.5 mL 4 completed Not Available [facility] 01/20/2025 11:34:41 Influenza, high-dose, trivalent, PF 4 completed Not Available [facility] 01/20/2025 11:34:41 COVID-19, mRNA, LNP-S, PF, 50 mcg/0.5 mL 4 completed Not Available [facility] 01/20/2025 11:34:41 COVID-19, mRNA, LNP-S, PF, 50 mcg/0.5 mL 5 completed Not Available [facility] 01/20/2025 11:34:41 Past Encounters Encounter ID Performer Location Encounter Start Date Encounter Closed Date Diagnosis/Indication Diagnosis SNOMED-CT Code Diagnosis ICD10 Code Diagnosis Note [id number] MD ANNE [facility] [address] [place] [address] 12/29/2024 11:22:26 01/05/2025 11:29:22 Endy hematuria 387114810 R31.0 Lower urin moreno tract symptoms due to benign prostatic hypertrophy 3175263555 9101 N40.1 Ureteric stone 33506785 N20.1 Urinary bladder stone 70 108028 N21.0 [facility] 6699 9008 E21.3 [id number] [facility] [address] [place] [address] 01/20/2025 11:33:04 01/21/2025 10:19:33 Endy hematuria 758641712 R31.0 - UA urnemarkab le today Lower urin moreno tract symptoms due to benign prostatic hypertrophy 0844549097 9101 N40.1 - Aqua scheduled on 02/[address] Bal Ureteric stone 59974663 N20.1 - went over ER visit and CT findings on 01/12- likely still has an left ureteral stone given LLQ intermitte nt pain- He still has toradol and oxycodone- Will send his stone fragments for analysis today- discussed doing a repeat CT and he will think about it- at this time he would like to proceed with surgical interventi on; team leader surgery noted regarding cysto, left URS w LL, possible left stent placement Urinary bladder stone 70 289107 N21.0 - As above Hyperparathyroidism 6699 9008 E21.3 - likely cause of his stone formation Acute constipation 93114 9006 K59.00 - likely secondary to narcotic use- Discussed anaphylact ic symptoms to watch for given his allergy to eggs; low risk of allergic reaction Health Concerns Section Related Observation LastModified by Organization Detai ls LastModified Time None Recorded Concern Status LastModified by Organization Details LastModified Time None Recorded Payers Encounter Date Sequence Insurance Name Policy Number Policy Jerry Covered Member ID Jerry Member ID Guarantor Name 01/20/2025 1 [facility] - DOS ON OR AFTER 19 (MEDICARE REPLACEMENT/ ADVANTAGE - HMO) [id number] 1 Ramírez Mancia [id number] Ramírez Mancia Notes Date Note Type Note Provider Name and Address Organization Details Recorded Time 01/20/2025 text/html 12/29/2024 (Dr. Bal):79M presents for ongoing eval for new onset gross hematuria, but also BPH/LUTS. Chronic BPH/LUTS, and had been on Flomax before, BID, recently daily, and currently off x 5 days. Urocuff without Flomax showed obstructive quadrant, near max pressure, reduced flow.IPSS 22, unhappy, and possibly worsening with the Flomax stoppage. 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 I restarted him on 0.4 mg Flomax (1 a day), better flow, no dizziness (yet), but LUTS incompletely controlled, QOL still dissatisfied. CT urogram obtained (), showed passing ureteral stone, bladder calculi (small), large gland, no concerning upper tract lesions. Boni has a long history of recurrent hyperparathyroidism, having had two reduction parathyroidectomies. 01/20/2025(Cathryn): Here for follow up regarding two left ureteral calculus (2mm and 5mm). His 01/12 CT A/P WO showed a 5mm mid left ureteral calculus with additional proximal nonobstructing 2mm left ureteral calculus with moderate left hydronephrosis. Multiple small stones present in bladder. Prostatomegaly. 2cm left adrenal adenoma noted. Cholelithiasis. He still admits to left lower back pain (after golf) and then LLQ pain yesterday. He took toradol and oxycodone which did relieve his symptoms. He has visualized one fragment via strainer and brings that in today. Has upcoming Aquablation planned with Dr. Bal scheduled for 02/22. UA unremarkable. CATHRYN GARCIAS PA-C [address] [place] [address],[address], [place], [address], [facility] 01/20/2025 12:36:03
--- OUTSIDE RECORDS SUMMARY | 2025-02-11 16:36 | XMS_ITS | Continuity of Care Document ---
Author Organization [facility], [facility] Address [address] [address] Assessment No assessment recorded. Plan of Treatment Reminders Order Date Submit Date Provider Last Modified By Organization Details Last Modified Time Details Appointments HOSPITAL 90 2024 10:45A M Hossein peacock MD Not available Not available Not available POST OP 10 2024 02:40P Kay peacock MD Not available Not available Not available Lab urinalysi s, dipstick 2024 025 [email or web address] [facility], [address], [place], [address], 12/29/2024 13:02:47 Referral None recorded. Procedures None recorded. Surgeries transuret hral resection of prostate (SURG) 2024 025 [email or web address] 0 Not available 12/29/2024 16:25:21 Imaging None recorded. Medication Orders None recorded. Patient TargetsNo targets recorded. 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 His GH work up suggested both BPH and his chronic kidney stones/and now bladder stones (all benign) as culprits. He is a good candidate for both Aqua and robo simple prostatectomy - the two procedures were reviewed today, goals/risks/limita tions. He wishes to proceed with Aquablation. I did encourage him to seek ongoing follow up for his hypercalcemia - the kidney stone history was reviewed, currently asymptomatic from the current event. Not available 12/29/2024 13:08:07 Reason for Referral None Reported. Results Created Date Observation Date Name Description Value Unit Range Abnormal Flag Note LastModifiedBy Organization Detail LastModifiedTime 12/30/19 25 12/29/2024 urina lysis , dipst ick BLOOD Negati ve Not Available [facility] [address], [place], [address], 12/29/2024 11:35:48 12/30/19 25 12/29/2024 urina lysis , dipst ick BILIRUBIN Negati ve Not Available [facility] [address], [place], [address], 12/29/2024 11:35:48 12/30/19 25 12/29/2024 urina lysis , dipst ick UROBILINOGEN 0.2 mg/dL (Norm) Not Available [facility] [address], [place], [address], 12/29/2024 11:35:48 12/30/19 25 12/29/2024 urina lysis , dipst ick KETONES Negati ve Not Available [facility] [address], [place], [address], 12/29/2024 11:35:48 12/30/19 25 12/29/2024 urina lysis , dipst ick PROTEIN Negati ve Not Available [facility] [address], [place], [address], 12/29/2024 11:35:48 12/30/19 25 12/29/2024 urina lysis , dipst ick NITRITES Negati ve Not Available [facility] [address], [place], [address], 12/29/2024 11:35:48 12/30/19 25 12/29/2024 urina lysis , dipst ick GLUCOSE Negati ve Not Available [facility] [address], [place], [address], 12/29/2024 11:35:48 12/30/19 25 12/29/2024 urina lysis , dipst ick p.H. 6.5 Not Available [facility] [address], [place], [address], 12/29/2024 11:35:48 12/30/19 25 12/29/2024 urina lysis , dipst ick S.G. (Specific [place]) 1.010 Not Available [facility] [address], [place], [address], 12/29/2024 11:35:48 12/30/19 25 12/29/2024 urina lysis , dipst ick LEUKOCYTES Negati ve Not Available [facility] [address], [place], [address], 12/29/2024 11:35:48 12/24/19 25 12/23/2024 CT ABD wo&W & pelv wo&W (no oral cont) No observ ation record ed. [facility] [address], [place], [address], 12/28/2024 17:00:21 01/16/20 25 01/12/2025 CT, abdom en + pelvi s, w/o contr ast No observ ation record ed. [email or web address] Not Available 2024 13:56:58 Result Notes None recorded. Problems Name Problem SNOMED Code Status Onset Date Resolution Date Notes Provider Name and Address Organization Details Recorded Time Incomplete emptying of urinary bladder 001354318 Active 2024 Hossein peacock MD [address] [place] [address],[facility] [address], [place], [address], [place] [facility] 17:06:47 Nocturia 200540398 Active 2024 Hossein peacock MD [address] [place] [address],[address], [place], [address], [facility] 5 13:32:01 Lower urinary tract symptoms due to benign prostatic hypertrophy 7547617644705 1 Active 2024 Hossein peacock MD [address] [place] [address],[address], [place], [address], [facility] 5 12:29:52 Endy hematuria 624830165 Active 2024 Hossein peacock MD [address] [place] [address],[address], [place], [address], [facility] 09:13:43 Ureteric stone 61766723 Active 2024 Hossein peacock MD [address] [place] [address],[address], [place], [address], [facility] 5 12:29:55 Urinary bladder stone 66410774 Active 2024 Hossein peacock MD [address] [place] [address],[address], [place], [address], [facility] 12:29:59 Hyperparath yroidism 85193139 Active 2024 MONTY GARCIAS PA-C [address] [place] [address],[address], [place], [address], [facility] 5 13:55:12 Acute constipatio n 999999475 Active 2024 MONTY GARCIAS PA-C [address] [place] [address],[address], [place], [address], [facility] 12:29:25 Problem Notes None recorded. Procedures Surgical History Date Name Laterality Status Provider Name and Address Organization Details Recorded Time 025 TRUS- Volume size only completed Hossein Bal MD [address] [place] [address],[address], [place], [address], [facility] 12/29/2024 13:02:29 025 CystoscopyMale completed Hossein Bal MD [address] [place] [address],[address], [place], [address], [facility] 12/29/2024 12:29:40 025 Bladder Scan completed Jazmín Brown [facility] 12/01/2024 16:15:59 025 Bladder Scan completed Shirley Johansen [facility] 10/19/2024 14:05:57 025 Pomaria - UroCuff completed Shirley Johansen [facility] 10/19/2024 14:08:02 025 [facility] 12:27:10 016 colonoscopy completed [facility] 09/18/2024 12:26:01 987 thyroidectomy completed [facility] 09/18/2024 12:25:19 987 parathyroidectomy completed [facility] 09/18/2024 12:25:29 Imaging Results None recorded. Procedure Notes None recorded. Medical Equipment None Reported. Allergies Allergen ID Allergen Name Allergen Category Reaction Reaction Severity Criticality Documentation Date Start Date Code Code System Note Provider Name and Address Organization Details Recorded Time 355588 banana extract food,medi cation Not available Not available Not available 09/18/20242020 88869 9 RxNorm unrec ogniz ed react ion (text : GI Upset , code: 27634 5008) (from exter nal sourc e) Aria carbajal [facility] 5 12:14:03 368615 diatrizoa te meglumine medicatio n hives Not available Not available 09/18/20242007 3320 RxNorm IV @ anw for CT/MR I scan: sever e Hives ! Aria carbajal [facility] 12:14:11 522820 bupropion Not available other Not available Not available 09/18/20242007 99454 RxNorm Wellb utrin Tremu lousn ess/a nxiet y [facility] 5 12:14:14 338261 egg extract food,medi cation Not available Not available Not available 09/18/20242020 92185 15 RxNorm No probl em with flu shot unrec ogniz ed react ion (text : GI Upset , code: 98523 5008) (from ext nal sourc e) [facility] 5 12:14:17 202486 raspberry extract food,medi cation Not available Not available Not available 09/18/20242020 20621 69 RxNorm unrec ogniz ed react ion (text : GI Upset , code: 51541 5008) [facility] 5 12:14:20 026481 norfloxac in medicatio n hives Not available Not available 09/18/20242007 7517 RxNorm [facility] 5 12:14:22 169656 wheat preparati on food,medi cation diarrhea Not available Not available 09/18/20242020 69388 52 RxNorm Patie nt repor ts king g Lorene c's in 1996 [facility] 5 12:14:25 Medications Name Sig Start Date [...] Not Available Not Available Not Avai lable Vitals Date Recorded Body height Body mass index (BMI) Body weight Provider Name and Address Organization Details Last Updated DateTime 12/29/2024 172.09 cm 31.9 kg/m2 96548.21 g Shantell [facility] 12/29/2024 11:35:17 Social History Question Answer Notes LastModified by Organizat ion Details LastModified Time Tobacco Smoking Status Never Smoker Enriqueta carbajal [facility] 10/27/2024 12:09:21 Do You Have An Advance Directive? Yes Information not available 09/18/2024 What Is Your Level Of Caffeine Consumption? Moderate Information not available 09/18/2024 When Did You Quit Smoking? 16+yearssince lastcigarette kosterbauer Information not available 10/27/2024 Do You Have A Medical Power Of Compensation Intern? No Information not available 09/18/2024 What Was [...] virus, trivalent, preservative 1 completed Not Available [facility] 01/20/2025 11:34:41 Influenza, split virus, quadrivalent, PF 3 completed Not Available [facility] 01/20/2025 11:34:41 Influenza, high-dose, trivalent, PF 6 completed Not Available [facility] 01/20/2025 11:34:41 Influenza, adjuvanted, trivalent, PF 7 completed Not Available [facility] 01/20/2025 11:34:41 pneumococcal polysaccharide PPV23 7 completed Not Available [facility] 01/20/2025 11:34:41 Influenza, adjuvanted, trivalent, PF 8 completed Not Available [facility] 01/20/2025 11:34:41 zoster recombinant 9 completed Not Available [facility] 01/20/2025 11:34:41 Influenza, adjuvanted, trivalent, PF 9 completed Not Available [facility] 01/20/2025 11:34:41 zoster recombinant 9 completed Not Available [facility] 01/20/2025 11:34:41 Influenza, adjuvanted, quadrivalent, PF 0 completed Not Available [facility] 01/20/2025 11:34:41 COVID-19, mRNA, LNP-S, PF, 100 mcg/0.5mL dose or 50 mcg/0.25mL dose 1 completed Not Available [facility] 01/20/2025 11:34:41 COVID-19, mRNA, LNP-S, PF, 100 mcg/0.5mL dose or 50 mcg/0.25mL dose 1 completed Not Available [facility] 01/20/2025 11:34:41 Influenza, high-dose, quadrivalent, PF 1 completed Not Available [facility] 01/20/2025 11:34:41 COVID-19, mRNA, LNP-S, PF, 100 mcg/0.5mL dose or 50 mcg/0.25mL dose 1 completed Not Available [facility] 01/20/2025 11:34:41 COVID-19, mRNA, LNP-S, PF, 100 mcg/0.5mL dose or 50 mcg/0.25mL dose 2 completed Not Available [facility] 01/20/2025 11:34:41 COVID-19, mRNA, LNP-S, bivalent, PF, 50 mcg/0.5 mL or 25mcg/0.25 mL dose 2 completed Not Available [facility] 01/20/2025 11:34:41 Influenza, high-dose, quadrivalent, PF 2 completed Not Available [facility] 01/20/2025 11:34:41 COVID-19, mRNA, LNP-S, bivalent, PF, 50 mcg/0.5 mL or 25mcg/0.25 mL dose 3 completed Not Available [facility] 01/20/2025 11:34:41 COVID-19, mRNA, LNP-S, PF, 50 mcg/0.5 mL 3 completed Not Available [facility] 01/20/2025 11:34:41 Influenza, high-dose, quadrivalent, PF 3 completed Not Available [facility] 01/20/2025 11:34:41 RSV, recombinant, protein subunit RSVpreF, adjuvant reconstituted, 0.5 mL, PF 3 completed Not Available [facility] 01/20/2025 11:34:41 COVID-19, mRNA, LNP-S, PF, 50 mcg/0.5 mL 4 completed Not Available [facility] 01/20/2025 11:34:41 Influenza, high-dose, trivalent, PF 4 completed Not Available [facility] 01/20/2025 11:34:41 COVID-19, mRNA, LNP-S, PF, 50 mcg/0.5 mL 4 completed Not Available [facility] 01/20/2025 11:34:41 COVID-19, mRNA, LNP-S, PF, 50 mcg/0.5 mL 5 completed Not Available [facility] 01/20/2025 11:34:41 Past Encounters Encounter ID Performer Location Encounter Start Date Encounter Closed Date Diagnosis/Indication Diagnosis SNOMED-CT Code Diagnosis ICD10 Code Diagnosis Note [id number] MD Jaja Tavera [address] [place] [address] 12/01/2024 15:45:46 12/07/2024 09:08:05 Lower urinary tract symptoms due to benign prostatic hypertrophy 7440076563 9101 N40.1 Incomplete emptying of urinary bladder 649058086 R33.9 [id number] MD Jaja Tavera [address] [place] [address] 12/29/2024 11:22:26 01/05/2025 11:29:22 Endy hematuria 557226241 R31.0 Lower urin moreno tract symptoms due to benign prostatic hypertrophy 2622099420 9101 N40.1 Ureteric stone 54472755 N20.1 Urinary bladder stone 70 370309 N21.0 Hyperparathyroidism 6699 9008 E21.3 Health Concerns Section Related Observation LastModified by Organization Detai ls LastModified Time None Recorded Concern Status LastModified by Organization Details LastModified Time None Recorded Payers Encounter Date Sequence Insurance Name Policy Number Policy Jerry Covered Member ID Jerry Member ID Guarantor Name 12/29/2024 1 [employer] - DOS ON OR AFTER 19 (MEDICARE REPLACEMENT/ ADVANTAGE - HMO) [id number] 1 Ramírez Mancia [id number] Ramírez Climax Notes Date Note Type Note Provider Name and Address Organization Details Recorded Time 12/29/2024 text/html 79M presents for ongoing eval for new onset [...] 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 Hossein Bal MD [address] [facility],[address], [place], [address], [facility] 12/29/2024 13:35:25
--- OUTSIDE RECORDS SUMMARY | 2025-02-11 16:36 | XMS_ITS | Data Portability ---
Author Organization [place] [facility] [place] [facility] Address [address] [place] [address] Assessment No assessment recorded. Plan of Treatment Reminders Order Date Submit Date Provider Last Modified By Organization Details Last Modified Time Details Appointments HOSPITAL 90 2024 10:45A Kay peacock MD Not available Not available Not available POST OP 10 2024 02:40P Kay peacock MD Not available Not available Not available Lab urinalysi s, dipstick 2024 025 [email or web address] [facility], [address], [place], [address], 01/20/2025 12:30:55 urinalysi s, dipstick 2024 025 [email or web address] [facility], [address], [place], [address], 12/29/2024 13:02:47 Referral None recorded. Procedures None recorded. Surgeries transuret hral resection of prostate (SURG) 2024 025 [email or web address] 0 Not available 12/29/2024 16:25:21 Imaging None recorded. Medication Orders docusate sodium 100 mg capsule [address] [id number], [id number], [address], 01/20/2025 12:30:58 Patient TargetsNo targets recorded. Patient Instructions Encounter Date Encounter Id Patient Instructions Last Modified By Organization Details Last Modified Time 10/27/2024 [id number] Boni will restar t Flomax daily - and alert me to any recurrent dizziness. He'll see me in 1 month - if he cannot tolerate BPH meds his [facility] suggests we'll need to escalate eval with cysto/TRUS. Not available 10/27/2024 13:09:16 12/01/2024 [id number] Boni, his PCP an d I may have optimized him as best we can with HTN management, BPH management, without SEs, with Flomax, at the moment, which was Boni's request. Should this not continue to control LUTS, our next step would be cysto/TRUS. I'll see him in 3 month for a simple followup, but if LUTS worsen, we'll convert it to a diagnostic eval. 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, [place], [address], 12/29/2024 11:35:48 12/30/19 25 12/29/2024 urina lysis , dipst ick BILIRUBIN Negati ve Not Available [facility] [address], [place], [address], 12/29/2024 11:35:48 12/30/19 25 12/29/2024 urina lysis , dipst ick UROBILINOGEN 0.2 mg/dL (Norm) Not Available [facility] [address], [place], [address], 12/29/2024 11:35:48 12/30/19 25 12/29/2024 urina lysis , dipst ick KETONES Negati ve Not Available [facility] [address], [place], [address], 12/29/2024 11:35:48 12/30/19 25 12/29/2024 urina lysis , dipst ick PROTEIN Negati ve Not Available [facility] [address], [place], [address], 12/29/2024 11:35:48 12/30/19 25 12/29/2024 urina lysis , dipst ick NITRITES Negati ve Not Available [facility] [address], [place], [address], 12/29/2024 11:35:48 12/30/19 25 12/29/2024 urina lysis , dipst ick GLUCOSE Negati ve Not Available [facility] [address], [place], [address], 12/29/2024 11:35:48 12/30/19 25 12/29/2024 urina lysis , dipst ick p.H. 6.5 Not Available [facility] [address], [place], [address], 12/29/2024 11:35:48 12/30/19 25 12/29/2024 urina lysis , dipst ick S.G. (Specific [place]) 1.010 Not Available [facility] [address], [place], [address], 12/29/2024 11:35:48 12/30/19 25 12/29/2024 urina lysis , dipst ick LEUKOCYTES Negati ve Not Available [facility] [address], [place], [address], 12/29/2024 11:35:48 01/21/20 25 01/27/2025 STONE LISA SIS source COMMEN T Not provi ded Not Available [facility] ([facility] [place] [facility] [address] [place], [address], 01/27/2025 16:21:04 01/21/20 25 01/27/2025 STONE LISA SIS color TA Not Available [facility] ([facility] [address] [place], [address], 01/27/2025 16:21:04 01/21/20 25 01/27/2025 STONE LISA SIS size <1 mm Too small to measu re. Not Available [facility] ([facility] [address] [place], [address], 01/27/2025 16:21:04 01/21/20 25 01/27/2025 STONE LISA SIS weight <1 mg Too small to weigh Not Available [facility] ([facility] [place] [facility] [address] [place], [address], 01/27/2025 16:21:04 01/21/20 25 01/27/2025 STONE LISA SIS calcium oxalate monohydrate 10 % Not Available [facility] [place] [facility] [address] [place], [address], 01/27/2025 16:21:04 01/21/20 25 01/27/2025 STONE LISA SIS calcium oxalate dihydrate 90 % Not Available [facility] [place] [facility] [address] [place], [address], 01/27/2025 16:21:04 01/21/20 25 01/27/2025 STONE LISA SIS calcium phosphate (hydroxyl) MANNEQUIN DECORATOR Not Available [facility] ([facility] [place] [facility] [address] [place], [address], 01/27/2025 16:21:04 01/21/20 25 01/27/2025 STONE LISA SIS calcium phosphate (carbonate) MANNEQUIN DECORATOR Not Available [facility] [place] [facility] [address] [place], [address], 01/27/2025 16:21:04 01/21/20 25 01/27/2025 STONE LISA SIS brushite ([id number] 2h2o) MANNEQUIN DECORATOR Not Available [facility] [place] [place] [facility] [address] [place], [address], 01/27/2025 16:21:04 01/21/20 25 01/27/2025 STONE LISA SIS calcium phosphate MANNEQUIN DECORATOR Not Available [facility] [place] [facility] [address] [place], [address], 01/27/2025 16:21:04 01/21/20 25 01/27/2025 STONE LISA SIS calcium carbonate MANNEQUIN DECORATOR Not Available [facility] ([facility] [place] [place] [facility] [address] [place], [address], 01/27/2025 16:21:04 01/21/20 25 01/27/2025 STONE LISA SIS struvite ([id number] 6h2o) MANNEQUIN DECORATOR Not Available [facility] [place] [facility] [address] [place], [address], 01/27/2025 16:21:04 01/21/20 25 01/27/2025 STONE LISA SIS newberyite (mghpo4 3h2o) MANNEQUIN DECORATOR Not Available [facility] [place] [facility] [address] [place], [address], 01/27/2025 16:21:04 01/21/20 25 01/27/2025 STONE LISA SIS uric acid MANNEQUIN DECORATOR Not Available [facility] ([facility] [place] [place] [facility] [address] [facility], [place], [address], 01/27/2025 16:21:04 01/21/20 25 01/27/2025 STONE LISA SIS uric acid dihydrate MANNEQUIN DECORATOR Not Available [facility] ([facility] [place] [place] [facility] [address] [place], [address], 01/27/2025 16:21:04 01/21/20 25 01/27/2025 STONE LISA SIS ammonium acid urate MANNEQUIN DECORATOR Not Available [facility] [place] [place] [facility] [address] [place], [address], 01/27/2025 16:21:04 01/21/20 25 01/27/2025 STONE LISA SIS sodium acid urate MANNEQUIN DECORATOR Not Available [facility] [place] [facility] [address] [place], [address], 01/27/2025 16:21:04 01/21/20 25 01/27/2025 STONE LISA SIS 2,8 dihydroxyade nine MANNEQUIN DECORATOR Not Available [facility] ([facility] [place] [place] [facility] [address] [place], [address], 01/27/2025 16:21:04 01/21/20 25 01/27/2025 STONE LISA SIS xanthine MANNEQUIN DECORATOR Not Available [facility] ([facility] [place] [place] [facility] [address] [place], [address], 01/27/2025 16:21:04 01/21/20 25 01/27/2025 STONE LISA SIS cystine MANNEQUIN DECORATOR Not Available [facility] ([facility] [place] [place] [facility] [address] [place], [address], 01/27/2025 16:21:04 01/21/20 25 01/27/2025 STONE LISA SIS cholesterol MANNEQUIN DECORATOR Not Available [facility] ([facility] [place] [place] [facility] [address] [place], [address], 01/27/2025 16:21:04 01/21/20 25 01/27/2025 STONE LISA SIS calcium bilirubinate MANNEQUIN DECORATOR Not Available [facility] ([facility] [place] [place] [facility] [address] [place], [address], 01/27/2025 16:21:04 01/21/20 25 01/27/2025 STONE LISA SIS bilirubin MANNEQUIN DECORATOR Not Available [facility] ([facility] [place] [place] [facility] [address] [place], [address], 01/27/2025 16:21:04 01/21/20 25 01/27/2025 STONE LISA SIS calcium palmitate MANNEQUIN DECORATOR Not Available [facility] ([facility] [place] [place] [facility] [address] [place], [address], 01/27/2025 16:21:04 01/21/20 25 01/27/2025 STONE LISA SIS calcium stearate MANNEQUIN DECORATOR Not Available [facility] ([facility] [place] [place] [facility] [address] [place], [address], 01/27/2025 16:21:04 01/21/20 25 01/27/2025 STONE LISA SIS triamterene MANNEQUIN DECORATOR Not Available [facility] ([facility] [place] [place] [facility] [address] [place], [address], 01/27/2025 16:21:04 01/21/20 25 01/27/2025 STONE LISA SIS drug or metabolite MANNEQUIN DECORATOR Not Available [facility] ([facility] [place] [place] [facility] [address] [place], [address], 01/27/2025 16:21:04 01/21/20 25 01/27/2025 STONE LISA SIS uncommon component(s) MANNEQUIN DECORATOR Not Available [facility] ([facility] [place] [place] [facility] [address] [place], [address], 01/27/2025 16:21:04 01/21/20 25 01/27/2025 STONE LISA SIS comment MANNEQUIN DECORATOR Not Available [facility] ([facility] [place] [place] [facility] [address] [facility] [place], [address], 01/27/2025 16:21:04 01/21/20 25 01/27/2025 STONE LISA SIS calculus received wet COMMEN T Calcu branden recei kalli wet. Wet calcu li must be dried befor e lisa sis, which delay s repor ting of resul ts. Leavi ng calcu li wet (such as water , salin e, blood , urine ) may lead to bray es in compo sitio n. Not Available [facility] ([facility] [place] [place] [facility] [address] [facility], [place], [address], 01/27/2025 16:21:04 01/21/20 25 01/20/2025 urina lysis , dipst ick BLOOD Negati ve Not Available [facility] [address], [place], [address], 01/18/2025 13:55:11 01/21/20 25 01/20/2025 urina lysis , dipst ick BILIRUBIN Negati ve Not Available [facility] [address], [place], [address], 01/18/2025 13:55:11 01/21/20 25 01/20/2025 urina lysis , dipst ick UROBILINOGEN 0.2 mg/dL (Norm) Not Available [facility] [address], [place], [address], 01/18/2025 13:55:11 01/21/20 25 01/20/2025 urina lysis , dipst ick KETONES Negati ve Not Available [facility] [address], [place], [address], 01/18/2025 13:55:11 01/21/20 25 01/20/2025 urina lysis , dipst ick PROTEIN Negati ve Not Available [facility] [address], [place], [address], 01/18/2025 13:55:11 01/21/20 25 01/20/2025 urina lysis , dipst ick NITRITES Negati ve Not Available [facility] [address], [place], [address], 01/18/2025 13:55:11 01/21/20 25 01/20/2025 urina lysis , dipst ick GLUCOSE Negati ve Not Available [facility] [address], [place], [address], 01/18/2025 13:55:11 01/21/20 25 01/20/2025 urina lysis , dipst ick p.H. 5.5 Not Available [facility] [address], [place], [address], 01/18/2025 13:55:11 01/21/20 25 01/20/2025 urina lysis , dipst ick S.G. (Specific [place]) 1.020 Not Available [facility] [address], [place], [address], 01/18/2025 13:55:11 01/21/20 25 01/20/2025 urina lysis , dipst ick LEUKOCYTES Negati ve Not Available [facility] [address], [place], [address], 01/18/2025 13:55:11 01/28/2002/03/2025 STONE LISA SIS source COMMEN T Not provi ded Not Available [facility] ([facility] [place] [place] [facility] [address] [facility], [place], [address], 02/03/2025 17:19:00 01/28/2002/03/2025 STONE LISA SIS color TA Not Available [facility] ([facility] [place] [place] [facility] [address] [facility], [place], [address], 02/03/2025 17:19:00 01/28/2002/03/2025 STONE LISA SIS size 2X2 mm Singl e piece recei kalli. Not Available [facility] ([facility] [place] [place] [facility] [address] [place], [address], 02/03/2025 17:19:00 01/28/2002/03/2025 STONE LISA SIS weight 7 mg Not Available [facility] ([facility] [place] [place] [facility] [address] [place], [address], 02/03/2025 17:19:00 01/28/2002/03/2025 STONE LISA SIS calcium oxalate monohydrate 20 % Not Available [facility] ([facility] [place] [place] [facility] [address] [place], [address], 02/03/2025 17:19:00 01/28/2002/03/2025 STONE LISA SIS calcium oxalate dihydrate 80 % Not Available [facility] ([facility] [place] [place] [facility] [address] [place], [address], 02/03/2025 17:19:00 01/28/2002/03/2025 STONE LISA SIS calcium phosphate (hydroxyl) MANNEQUIN DECORATOR Not Available [facility] ([facility] [place] [place] [facility] [address] [place], [address], 02/03/2025 17:19:00 01/28/2002/03/2025 STONE LISA SIS calcium phosphate (carbonate) MANNEQUIN DECORATOR Not Available [facility] [place] [place] [facility] [address] [place], [address], 02/03/2025 17:19:00 01/28/2002/03/2025 STONE LISA SIS brushite (cahpo4 2h2o) MANNEQUIN DECORATOR Not Available [facility] [place] [place] [facility] [address] [place], [address], 02/03/2025 17:19:00 01/28/2002/03/2025 STONE LISA SIS calcium phosphate MANNEQUIN DECORATOR Not Available [facility] ([facility] [place] [place] [facility] [address] [place], [address], 02/03/2025 17:19:00 01/28/2002/03/2025 STONE LISA SIS calcium carbonate MANNEQUIN DECORATOR Not Available [facility] ([facility] [place] [place] [facility] [address] [place], [address], 02/03/2025 17:19:00 01/28/2002/03/2025 STONE LISA SIS struvite ([id number] 6h2o) MANNEQUIN DECORATOR Not Available [facility] ([facility] [place] [place] [facility] [address] [place], [address], 02/03/2025 17:19:00 01/28/2002/03/2025 STONE LISA SIS newberyite (mghpo4 3h2o) MANNEQUIN DECORATOR Not Available [facility] ([facility] [place] [place] [facility] [address] [place], [address], 02/03/2025 17:19:00 01/28/2002/03/2025 STONE LISA SIS uric acid MANNEQUIN DECORATOR Not Available [facility] ([facility] [place] [place] [facility] [address] [place], [address], 02/03/2025 17:19:00 01/28/2002/03/2025 STONE LISA SIS uric acid dihydrate MANNEQUIN DECORATOR Not Available [facility] ([facility] [place] [place] [facility] [address] [place], [address], 02/03/2025 17:19:00 01/28/2002/03/2025 STONE LISA SIS ammonium acid urate MANNEQUIN DECORATOR Not Available [facility] ([facility] [place] [facility] [address] [place], [address], 02/03/2025 17:19:00 01/28/2002/03/2025 STONE LISA SIS sodium acid urate MANNEQUIN DECORATOR Not Available [facility] ([facility] [place] [place] [facility] [address] [place], [address], 02/03/2025 17:19:00 1802/03/2025 STONE LISA SIS 2,8 dihydroxyade nine MANNEQUIN DECORATOR Not Available [facility] ([facility] [place] [facility] [address] [place], [address], 02/03/2025 17:19:00 1802/03/2025 STONE LISA SIS xanthine MANNEQUIN DECORATOR Not Available [facility] ([facility] [place] [place] [facility] [address] [place], [address], 02/03/2025 17:19:00 01/28/2002/03/2025 STONE LISA SIS cystine MANNEQUIN DECORATOR Not Available [facility] ([facility] [place] [place] [facility] [address] [place], [address], 02/03/2025 17:19:00 01/28/2002/03/2025 STONE LISA SIS cholesterol MANNEQUIN DECORATOR Not Available [facility] ([facility] [place] [facility] [address] [place], [address], 02/03/2025 17:19:00 01/28/2002/03/2025 STONE LISA SIS calcium bilirubinate MANNEQUIN DECORATOR Not Available [facility] ([facility] [place] [facility] [address] [place], [address], 02/03/2025 17:19:00 01/28/2002/03/2025 STONE LISA SIS bilirubin MANNEQUIN DECORATOR Not Available [facility] ([facility] [place] [facility] [address] [place], [address], 02/03/2025 17:19:00 01/28/2002/03/2025 STONE LISA SIS calcium palmitate MANNEQUIN DECORATOR Not Available [facility] ([facility] [place] [place] [facility] [address] [place], [address], 02/03/2025 17:19:00 01/28/2002/03/2025 STONE LISA SIS calcium stearate MANNEQUIN DECORATOR Not Available [facility] ([facility] [place] [place] [facility] [address] [facility], [place], [address], 02/03/2025 17:19:00 01/28/2002/03/2025 STONE LISA SIS triamterene MANNEQUIN DECORATOR Not Available [facility] ([facility] [place] [facility] [address] [facility], [place], [address], 02/03/2025 17:19:00 01/28/2002/03/2025 STONE LISA SIS drug or metabolite MANNEQUIN DECORATOR Not Available [facility] ([facility] [place] [place] [facility] [address] [facility], [place], [address], 02/03/2025 17:19:00 01/28/2002/03/2025 STONE LISA SIS uncommon component(s) MANNEQUIN DECORATOR Not Available [facility] ([facility] [place] [facility] [address] [facility], [place], [address], 02/03/2025 17:19:00 01/28/2002/03/2025 STONE LISA SIS comment MANNEQUIN DECORATOR Not Available [facility] ([facility] [place] [place] [facility] [address] [facility], [place], [address], 02/03/2025 17:19:00 01/28/2002/03/2025 STONE LISA SIS calculus received wet MANNEQUIN DECORATOR Not Available [facility] ([facility] [place] [place] [facility] [address] [facility], [place], [address], 02/03/2025 17:19:00 12/24/1912/23/2024 CT ABD wo&W & pelv wo&W (no oral cont) No observ ation record ed. [facility] [address] [address], [place], [address], 12/28/2024 17:00:21 01/16/20 25 01/12/2025 CT, abdom en + pelvi s, w/o contr ast No observ ation record ed. [email or web address] Not Available 2024 13:56:58 Result Notes None recorded. Problems Name Problem SNOMED Code Status Onset Date Resolution Date Notes Provider Name and Address Organization Details Recorded Time Incomplete emptying of urinary bladder 917823469 Active 2024 Hossein peacock MD [address] [place] [address],[address] [place] [address], [address], [facility] 5 17:06:47 Nocturia 062555272 Active 2024 Hossein peacock MD [address] [place] [address],[address], [place], [address], [facility] 5 13:32:01 Lower urinary tract symptoms due to benign prostatic hypertrophy 5826667148184 1 Active 2024 Hossein peacock MD [address] [place] [address],[address] [place] [address], [address], [facility] 12:29:52 Endy hematuria 051641404 Active 2024 Hossein peacock MD [address] [place] [address],[address] [place] [address], [address], [facility] 09:13:43 Ureteric stone 66013598 Active 2024 Hossein peacock MD [address] [place] [address],[address] [place] [address], [facility] 5 12:29:55 Urinary bladder stone 42291984 Active 2024 Hossein peacock MD [address] [place] [address],[address] [place] [address], [facility] 12:29:59 Hyperparath yroidism 04548939 Active 2024 CATHRYN GARCIAS PA-C [address] [place] [address],[address] [address], [facility] 13:55:12 Acute constipatio n 775660760 Active 2024 CATHRYN GARCIAS PA-C [address] [place] [address],[address] [place] [address], [facility] 12:29:25 Problem Notes None recorded. Procedures Surgical History Date Name Laterality Status Provider Name and Address Organization Details Recorded Time 025 TRUS- Volume size only completed Hossein Bal MD [address] [place] [address],[address], [place], [address], [facility] 12/29/2024 13:02:29 025 CystoscopyMale completed Hossein Bal MD [address] [place] [address],[address], [place], [address], [facility] 12/29/2024 12:29:40 025 Bladder Scan completed Jazmín Brown [facility] 12/01/2024 16:15:59 025 Bladder Scan completed Shirley Johansen [facility] 10/19/2024 14:05:57 025 [place] [facility] completed Shirley Johansen [facility] 10/19/2024 14:08:02 025 Bladder Scan [facility] 12:27:10 016 colonoscopy completed [facility] 09/18/2024 12:26:01 987 [facility] 09/18/2024 12:25:19 987 [facility] 09/18/2024 12:25:29 Imaging Results None recorded. Procedure Notes None recorded. Medical Equipment None Reported. Allergies Allergen ID Allergen Name Allergen Category Reaction Reaction Severity Criticality Documentation Date Start Date Code Code System Note Provider Name and Address Organization Details Recorded Time 579860 banana extract food,medi cation Not available Not available Not available 09/18/20242020 26627 9 RxNorm unrec ogniz ed react ion (text : GI Upset , code: 31999 5008) (from exter nal sourc e) Aria carbajal [facility] 5 12:14:03 412422 diatrizoa te meglumine medicatio n hives Not available Not available 09/18/20242007 3320 RxNorm IV @ anw for CT/MR I scan: sever e Hives ! Aria carbajal, [facility] 5 12:14:11 115133 bupropion Not available other Not available Not available 09/18/20242007 47412 RxNorm Wellb utrin Tremu lousn ess/a [facility]xiet y [facility] 12:14:14 689167 egg extract food,medi cation Not available Not available Not available 09/18/20242020 41500 15 RxNorm No probl em with flu shot unrec ogniz ed react ion (text : GI Upset , code: 20908 5008) (from exter nal sourc e) [facility] 12:14:17 337416 raspberry extract food,medi cation Not available Not available Not available 09/18/20242020 40810 69 RxNorm unrec ogniz ed react ion (text : GI Upset , code: 42285 5008) (from exter nal sourc e) [facility] 12:14:20 576683 norfloxac in medicatio n hives Not available Not available 09/18/20242007 7517 RxNorm [facility] 12:14:22 023654 wheat preparati on food,medi cation diarrhea Not available Not available 09/18/20242020 63566 52 RxNorm Patie nt repor ts king g Lorene c's in 1996 [facility] 5 12:14:25 Medications Name Sig Start [...] and Address Organization Details Last Updated DateTime 10/27/2024 172.09 cm 31.9 kg/m2 63400.21 g Enriqueta Guerrero [facility] 10/27/2024 12:08:51 Date Recorded Body height Body mass index (BMI) Body weight Provider Name and Address Organization Details Last Updated DateTime 12/01/2024 172.09 cm 31.9 kg/m2 59048.21 g Jazmín Alfaroafson [facility] 12/01/2024 16:14:27 Date Recorded Body height Body mass index (BMI) Body weight Provider Name and Address Organization Details Last Updated DateTime 12/29/2024 172.09 cm 31.9 kg/m2 34689.21 g Shantell Jay [facility] 12/29/2024 11:35:17 Date Recorded Body height Body mass index (BMI) Body weight Provider Name and Address Organization Details Last Updated DateTime 01/20/2025 172.09 cm 31.9 kg/m2 60837.21 g Heidy Sanders [facility] 01/20/2025 12:06:23 Social History Question Answer Notes LastModified by Organizat ion Details LastModified Time Tobacco Smoking Status Never Smoker [facility] 10/27/2024 12:09:21 Do You Have An Advance Directive? Yes Information not available 09/18/2024 What Is Your Level Of Caffeine Consumption? Moderate Information not available 09/18/2024 When Did You Quit Smoking? 17+yearssince silvina flores Information not available 10/27/2024 Do You Have A Medical Power Of Telephone Ad Taker? No Information not available 09/18/2024 What Was [...] available 09/18/2024 12:24:52 Medical History Condition Response Other Y High Blood Pressure Y Kidney Stones Y Depression Y Lung Disease N GERD/Acid Reflux N Sexually Transmitted Infection N Cancer Y High Cholesterol Y Diabetes N Bleeding Disorder N Heart Disease N Immunizations Vaccine Type Date Status Note Provider Nam e and Address Organization Details Recorded Time Influenza, split virus, trivalent, preservative 1 completed Not Available [facility] 01/20/2025 11:34:41 Influenza, split virus, quadrivalent, PF 3 completed Not Available [facility] 01/20/2025 11:34:41 Influenza, high-dose, trivalent, PF 6 completed Not Available [facility] 01/20/2025 11:34:41 Influenza, adjuvanted, trivalent, PF 7 completed Not Available [facility] 01/20/2025 11:34:41 pneumococcal polysaccharide PPV23 7 completed Not Available [facility] 01/20/2025 11:34:41 Influenza, adjuvanted, trivalent, PF 8 completed Not Available [facility] 01/20/2025 11:34:41 zoster recombinant 9 completed Not Available [facility] 01/20/2025 11:34:41 Influenza, adjuvanted, trivalent, PF 9 completed Not Available [facility] 01/20/2025 11:34:41 zoster recombinant 9 completed Not Available [facility] 01/20/2025 11:34:41 Influenza, adjuvanted, quadrivalent, PF 0 completed Not Available [facility] 01/20/2025 11:34:41 COVID-19, mRNA, LNP-S, PF, 100 mcg/0.5mL dose or 50 mcg/0.25mL dose 1 completed Not Available [facility] 01/20/2025 11:34:41 COVID-19, mRNA, LNP-S, PF, 100 mcg/0.5mL dose or 50 mcg/0.25mL dose 1 completed Not Available [facility] 01/20/2025 11:34:41 Influenza, high-dose, quadrivalent, PF 1 completed Not Available [facility] 01/20/2025 11:34:41 COVID-19, mRNA, LNP-S, PF, 100 mcg/0.5mL dose or 50 mcg/0.25mL dose 1 completed Not Available [facility] 01/20/2025 11:34:41 COVID-19, mRNA, LNP-S, PF, 100 mcg/0.5mL dose or 50 mcg/0.25mL dose 2 completed Not Available [facility] 01/20/2025 11:34:41 COVID-19, mRNA, LNP-S, bivalent, PF, 50 mcg/0.5 mL or 25mcg/0.25 mL dose 2 completed Not Available [facility] 01/20/2025 11:34:41 Influenza, high-dose, quadrivalent, PF 2 completed Not Available [facility] 01/20/2025 11:34:41 COVID-19, mRNA, LNP-S, bivalent, PF, 50 mcg/0.5 mL or 25mcg/0.25 mL dose 3 completed Not Available [facility] 01/20/2025 11:34:41 COVID-19, mRNA, LNP-S, PF, 50 mcg/0.5 mL 3 completed Not Available [facility] 01/20/2025 11:34:41 Influenza, high-dose, quadrivalent, PF 3 completed Not Available [facility] 01/20/2025 11:34:41 RSV, recombinant, protein subunit RSVpreF, adjuvant reconstituted, 0.5 mL, PF 3 completed Not Available [facility] 01/20/2025 11:34:41 COVID-19, mRNA, LNP-S, PF, 50 mcg/0.5 mL 4 completed Not Available [facility] 01/20/2025 11:34:41 Influenza, high-dose, trivalent, PF 4 completed Not Available [facility] 01/20/2025 11:34:41 COVID-19, mRNA, LNP-S, PF, 50 mcg/0.5 mL 4 completed Not Available [facility] 01/20/2025 11:34:41 COVID-19, mRNA, LNP-S, PF, 50 mcg/0.5 mL 5 completed Not Available [facility] 01/20/2025 11:34:41 Past Encounters Encounter ID Performer Location Encounter Start Date Encounter Closed Date Diagnosis/Indication Diagnosis SNOMED-CT Code Diagnosis ICD10 Code Diagnosis Note [id number] MD ANNE Tavera_[facility] [employer] [place] [address] 09/18/2024 11:58:59 09/25/2024 11:15:24 Lower urinary tract symptoms due to benign prostatic hypertrophy 1707141846 9101 N40.1 Incomplete emptying of urinary bladder [id number] R39.14 Nocturia [id number] R35.1 [id number] MD ANNE Tavera_A[facility]a [employer] [place] [address] 10/19/2024 11:21:38 10/26/2024 09:22:29 [id number] Hossein Bal MD _[facility] [employer] [place] [address] 10/27/2024 11:58:42 10/30/2024 11:35:38 Incomplete emptying of urinary bladder [id number] R39.14 Nocturia 235564501 R35.1 Lower urin moreno tract symptoms due to benign prostatic hypertrophy [id number] 9101 N40.1 [id number] MD ANNE Tavera_[facility] [employer] [place] [address] 12/01/2024 15:45:46 12/07/2024 09:08:05 Lower urinary tract symptoms due to benign prostatic hypertrophy [id number] 9101 N40.1 Incomplete emptying of urinary bladder 435825192 R33.9 [id number] Hossein Bal MD [facility] [address] [place] [address] 12/29/2024 11:22:26 01/05/2025 11:29:22 Endy hematuria 008836354 R31.0 Lower urin moreno tract symptoms due to benign prostatic hypertrophy 6367353605 9101 N40.1 Ureteric stone 93064414 N20.1 Urinary bladder stone 70 771557 N21.0 Hyperparathyroidism 6699 9008 E21.3 [id number] CATHRYN GARCIAS PA-C [facility] [address] [place] [address] 01/20/2025 11:33:04 01/21/2025 10:19:33 Endy hematuria 857325625 R31.0 - UA urnemarkab le today Lower urin moreno tract symptoms due to benign prostatic hypertrophy [id number] 9101 N40.1 - Aqua scheduled on 02/[address] Bal Ureteric stone 40387546 N20.1 - went over ER visit and CT findings on 01/12- likely still has an left ureteral stone given LLQ intermitte nt pain- He still has toradol and oxycodone- Will send his stone fragments for analysis today- discussed doing a repeat CT and he will think about it- at this time he would like to proceed with surgical interventi on; bite block maker noted regarding cysto, left URS w LL, possible left stent placement Urinary bladder stone 70 450807 N21.0 - As above Hyperparathyroidism 6699 9008 E21.3 - likely cause of his stone formation Acute constipation 9006 K59.00 - likely secondary to narcotic use- Discussed anaphylact ic symptoms to watch for given his allergy to eggs; low risk of allergic reaction Health Concerns Section Related Observation LastModified by Organization Detai ls LastModified Time None Recorded Concern Status LastModified by Organization Details LastModified Time None Recorded Advance Directives Directive Y: Payers Insurance Date Sequence Insurance Name Policy Number Policy Jerry Covered Member ID Jerry Member ID Guarantor Name 01/17/2025 1 [employer] - DOS ON OR AFTER 19 (MEDICARE REPLACEMENT/ ADVANTAGE - HMO) [id number] 1 Ramírez Mancia [id number] Ramírez Mancia Notes Date Note Type Note Provider Name and Address Organization Details Recorded Time 10/19/2024 text/html Patient presents for Urocuff testing. Performed by; ANSHUL Powers [facility] 10/19/2024 14:09:48 10/27/2024 text/html 78M presents for ongoing eval for BPH/LUTS. Chronic BPH/LUTS, and has been on Flomax before, BID, recently daily, and currently off x 5 days. Urocuff without Flomax showed obstructive quadrant, near max pressure, reduced flow. IPSS 22, unhappy, and possibly worsening with the Flomax stoppage. Having some possible SEs from it (HTN/dizziness?) - optimizing his HTN with PCP. 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 PSA screening through 60s-70s all stable / WNL his PCP told him - I cannot see these numbers.PVR 57, UA WNL. Hossein Bal MD [address] [place] [address],[address], [phone], [facility] 10/27/2024 13:09:25 12/01/2024 text/html 79M presents for ongoing eval for BPH/LUTS. Chronic BPH/LUTS, and had been on Flomax before, BID, recently daily, and currently off x 5 days. Urocuff without Flomax showed obstructive quadrant, near max pressure, reduced flow. IPSS 22, unhappy, and possibly worsening with the Flomax stoppage. Wa having some possible SEs from it (HTN/dizziness?) - optimizing his HTN with PCP.Is being followed for both brain meningioma and Schwannoma.PSA screening through 60s-70s all stable / WNL his PCP told him - I cannot see these numbers.PVR 57, UA WNL. I restarted him on 0.4 mg Flomax (1 a day), better flow, no dizziness (yet), we are cautiously optimistic. Hossein Bal MD [address] [place] [address],[address] [place] [address], [phone], [facility] 12/01/2024 17:08:22 12/29/2024 text/html 79M presents for ongoing eval [...] recurrent hyperparathyroidism, having had two reduction parathyroidectomies. Hossein Bal MD [address] [place] [address],[address], [place], [address], [facility] 12/29/2024 13:35:25 01/20/2025 text/html 12/29/2024 (Dr. Bal):79M presents for [...] for 02/22. UA unremarkable. CATHRYN GARCIAS PA-C [address] [place] [address],[address], [place], [address], [facility] 01/20/2025 12:36:03
--- OUTSIDE RECORDS SUMMARY | 2025-02-11 16:36 | XMS_ITS | Patient Health Record ---
Author Organization [facility] Address [address] [place] [address] Care Team Providers Care Assembler Final Name Role Phone JUSTYN YANG Primary Care Provider Reason For Referral No Information Plan Of Treatment No Information Insurance Providers Payer Name Payer Address Payer Phone Subscriber Number Group Number Insured Name Patient Relationship to Insured Coverage Start Date Coverage End Date PR BLUE PPO/PPC /FEP [address] [place] [address] [phone] [id number] Ramírez Mancia jr Self - patient is the insured
--- NOTE | 2025-02-11 16:45 | ED.ABDPAIN ---
HPI - Abdominal Pain General Time Seen by Provider: 16:45 Date Seen: 02/11/25 Chief Complaint: Abdominal Pain Stated Complaint: kidney stone, difficulty urinating Time Seen by Provider: 02/11/25 16:42 Source: patient and RN notes reviewed Mode of arrival: ambulatory Limitations: no limitations History of Present Illness HPI narrative: This 79-year-old male is coming in with lower central abdominal pain. He has not taken anything but has been drinking plenty of fluids. Has a history of kidney stones and notes that he had recent hematuria. He did have an office visit on January 29 and February 02. They plan on doing a robotic aqua ablation of his prostate for BPH, to be done at [place] on February 22. We did see him earlier in January, had 2 obstructing stones on the left side. He states they talked about potentially doing a repeat CT but had not yet. He still has a few tablets of Fabius and Toradol left from when we saw him earlier in January. He does not want to run out on the weekend. He is still on his Flomax. Related Data Home Medications ?Medication ?Instructions ?Recorded ?Confirmed albuterol sulfate 90 mcg/actuation 2 puff inhalation Q4-6H PRN 08/04/23 02/11/25 aerosol inhaler amlodipine 5 mg tablet 5 mg PO DAILY 08/04/23 08/04/23 atorvastatin 10 mg tablet 10 mg PO DAILY 08/04/23 02/11/25 calcium citrate 200 mg PO QDAY 08/04/23 02/11/25 escitalopram oxalate 10 mg tablet 10 mg PO DAILY 08/04/23 02/11/25 fexofenadine 180 mg tablet 180 mg PO Q24H 08/04/23 02/11/25 fluticasone 250 mcg-salmeterol 50 1 ea inhalation BID 08/04/23 08/04/23 mcg/dose blistr powdr for inhalation fluticasone 250 mcg-salmeterol 50 1 inh inhalation Q12H 08/04/23 02/11/25 mcg/dose blistr powdr for inhalation (Advair Diskus) hydrochlorothiazide 12.5 mg tablet 12.5 mg PO DAILY 08/04/23 02/11/25 levothyroxine 112 mcg tablet 112 mcg PO DAILY 08/04/23 02/11/25 losartan 50 mg tablet 75 mg PO BID 08/04/23 02/11/25 multivitamin 1 tab PO QAM 08/04/23 02/11/25 tamsulosin 0.4 mg capsule 0.8 mg PO DAILY 08/04/23 02/11/25 verapamil 240 mg tablet,extended 240 mg PO 3XD 02/11/25 02/11/25 release Previous Rx's ?Medication ?Instructions ?Recorded albuterol sulfate 90 mcg/actuation 2 puff inhalation Q4-6H PRN 08/04/23 aerosol inhaler shortness of breath or wheezing #6.7 grams benzonatate 100 mg capsule 100 mg PO BID PRN cough #14 caps 08/04/23 hydrocodone 5 mg-acetaminophen 325 1 tab PO Q4-6H PRN pain #14 tabs 01/12/25 mg tablet ketorolac 10 mg tablet 10 mg PO Q12H PRN pain #10 tabs 01/12/25 Allergies Allergy/AdvReac Type Severity Reaction Status Date / Time bupropion (From Wellbutrin) Allergy Verified 02/11/25 16:42 Iodinated Contrast Media Allergy Verified 02/11/25 16:42 norfloxacin (From Noroxin) Allergy Verified 02/11/25 16:42 Review of Systems Status of ROS Reports: 6 or more systems reviewed and unremarkable except as noted in History and below [facility] Medical History Celiac disease ?K90.0 - Celiac disease (ICD-10) Mild intermittent asthma ?J45.20 - Mild intermittent asthma, uncomplicated (ICD-10) Dupuytren contracture ?M72.0 - Palmar fascial fibromatosis [Dupuytren] (ICD-10) Meningioma, cerebral ?D32.0 - Benign neoplasm of cerebral meninges (ICD-10) Thyroid cancer ?C73 - Malignant neoplasm of thyroid gland (ICD-10) Hypothyroidism ?E03.9 - Hypothyroidism, unspecified (ICD-10) Hypertension ?I10 - Essential (primary) hypertension (ICD-10) Essential tremor ?G25.0 - Essential tremor (ICD-10) Surgical History H/O craniotomy ?Z98.890 - Other specified postprocedural states (ICD-10) H/O parathyroidectomy ?Z98.890 - Other specified postprocedural states (ICD-10) ?Z90.89 - Acquired absence of other organs (ICD-10) Social History Smoking Status: Never smoker Second hand tobacco smoke exposure: No How often do you have a drink containing alcohol: never How often do you have six or more drinks on one occasion: Never AUDIT-C Alcohol total score: 0 Non-prescribed substance use: denies use service: No Exam Const: Vital Signs, click to edit/add: Vital Signs - 24 hr 02/11/25 16:36 02/11/25 18:12 Temperature 99.1 F Pulse Rate [Right Pulse Oximeter] 65 61 Respiratory Rate 18 18 Blood Pressure [Ri ght Upper Arm] 180/94 H 139/88 Pulse Oximetry 98 97 Oxygen Delivery Me thod Room Air This 79-year-old male is alert, interactive, no apparent distress. Very pleasant gentleman. Speak in complete sentences, sclera clear. Lungs clear come good air entry, no wheezing crackles. CV regular rate and rhythm, no murmur, normal S1-S2. Abdomen is soft, nontender, nondistended, no organomegaly, no rebound or guarding. No lower extremity edema. Skin visualized without rash. Documenting provider has reviewed patient's vital signs: yes Course Course ED Course: Will proceed with CT imaging to assess for renal colic. Will get full complement of labs and urinalysis. Patient would like something for pain, will initiated dose of IV Toradol 15 mg. Will make sure his kidney function is stable today given the use of Toradol recently. He has not had any fevers and this sounds like it probably is stemming from a ongoing issues with nephrolithiasis but urinary tract infection needs to be considered. Labs and CT imaging may also guide towards other intra abdominal pathology, await results. Reevaluation(s) Time of Reevaluation #1: 18:08 Reevaluation #1: Patient is doing fine. Did review the CT report with him. We have discussed that the stone has moved down and is going in the bladder, at the left UVJ. We need to await his kidney functions. He is post to have prostate surgery on February 22. We did discuss that he should avoid NSAIDs the week before. We need to see where his creatinine is to see if he really should even be continuing to take any NSAIDs. He may just require the Fabius depending on what his kidney function is. I will see if staff can fax this report to his urologist Dr. Bal with [facility]. Patient states he sees him in the [place] office. Time of Reevaluation #2: 18:59 Reevaluation #2: Have reviewed with the patient that his kidney function remains stable. We did review some questions he had about the CT. He will discuss this further with his urologist. Given this is a holiday weekend and tomorrow pharmacies are likely close, patient will get his medications from [email or web address]. Ten tablets of 5/325 mg of Fabius provided and 20 tablets of the 10 mg Toradol. Vital Signs Vital signs: Initial Vital Signs Temperature 99.1 F 02/11/25 16:36 Temperature Source Temporal Artery Scan 02/11/25 16:36 Pulse Rate 65 02/11/25 16:36 Pulse Rhythm Regular 02/11/25 16:36 Pulse Strength 3+ Normal 02/11/25 16:36 Respiratory Rate 18 02/11/25 16:36 Blood Pressure 180/94 H 02/11/25 16:36 Blood Pressure Mean 122 H 02/11/25 16:36 Blood Pressure Position Sitting 02/11/25 16:36 Pulse Oximetry 98 02/11/25 16:36 Oxygen Delivery Method Room Air 02/11/25 16:36 Vital Signs Temperature 99.1 F 02/11/25 16:36 Pulse Rate 65 02/11/25 16:36 Respiratory Rate 18 02/11/25 16:36 Blood Pressure 180/94 H 02/11/25 16:36 Pulse Oximetry 98 02/11/25 16:36 Oxygen Delivery Method Room Air 02/11/25 16:36 Temperature 99.1 F 02/11/25 16:36 Pulse Rate 61 02/11/25 18:12 Respiratory Rate 18 02/11/25 18:12 Blood Pressure 139/88 02/11/25 18:12 Pulse Oximetry 97 02/11/25 18:12 Oxygen Delivery Method Room Air 02/11/25 16:36 Medications Administered Medications: Discontinued Medications Generic Name Dose Route Start Last Admin Trade Name Freq PRN Reason Stop Dose Admin Ketorolac Tromethamine 15 mg 07/03/25 16:55 02/11/25 17:21 Ketorolac 15 Mg/Ml Inj IVP 02/11/25 16:56 15 mg ONCE ONE Administration MDM - Abdominal Pain Lab Data Attestation: I reviewed the patient's lab results. Labs: Lab Results 02/11/25 02/11/25 Range/Units 16:55 17:15 WBC 9.94 (4.50-11.00) K/uL RBC 4.77 (4.30-5.90) m/uL Hgb 14.0 (13.5-17.5) gm/dL Hct 42.2 (37.0-53.0) % MCV 89 (80-100) fL MCH 29 (26-34) pg MCHC 33 (32-36) gm/dL RDW Coeff of Harpal 12.1 (11.5-15.5) % Plt Count 272 (140-440) K/uL Neut % (Auto) 62.9 (42.0-72.0) % Lymph % (Auto) 22.8 (20-44) % Sherman % (Auto) 10.2 (0.0-11.0) % Eos % (Auto) 3.4 (0.0-7.0) % Baso % (Auto) 0.4 (0.0-3.0) % Neut # (Auto) 6.25 (1.7-7.0) K/uL Lymph # (Auto) 2.27 (0.90-2.90) K/uL Sherman # (Auto) 1.00 H (0.00-0.90) K/UL Eos # (Auto) 0.34 (0.00-0.50) K/uL Baso # (Auto) 0.04 (0.00-0.30) K/uL Abs Immat Gran (auto) 0.03 (0.00-0.30) K/uL Imm/Tot Granulo (auto) 0.3 % Sodium 140 (135-149) mmol/L Potassium 3.6 (3.6-5.1) mmol/L Chloride 103 (96-114) mmol/L Carbon Dioxide 30 (20-32) mmol/L Anion Gap 7 (7-15) mEq/L BUN 18 (7-30) mg/dL Creatinine 0.8 (0.5-1.5) mg/dL Estimated Creat Clear 56.92 Estimated GFR 91 ml/min Glucose 84 (60-115) mg/dL Lactate 0.8 (0.5-1.9) mmol/L Calcium 10.9 H (8.4-10.6) mg/dL Total Bilirubin 0.5 (0.1-1.5) mg/dL AST 54 H (12-35) U/L ALT 37 (4-50) U/L Alkaline Phosphatase 68 (40-150) U/L C-Reactive Protein 0.8 (0.5-1.0) mg/dL Total Protein 6.9 (6.0-8.3) g/dL Albumin 4.3 (3.3-5.0) g/dL Urine Color Yellow (Yellow) Urine Appearance Clear (Clear) Urine pH 7.5 (5.0-8.5) Ur Specific Mitchell 1.015 (1.000-1.030) Urine Protein Negative (Negative) Urine Glucose (UA) Negative (Negative) Urine Ketones Negative (Negative) Urine Blood 2+ A (Negative) Urine Nitrite Negative (Negative) Urine Bilirubin Negative (Negative) Urine Urobilinogen 0.2 (0.2-1.0) Ur Leukocyte Esterase Negative (Negative) Urine RBC 10-25 A (0-2) Urine WBC 0-2 (0-5) Ur Squamous Epith Cells None (None-Few) Urine Bacteria None (None) Imaging Data CT scan - abdomen: Attestation: I have reviewed the pertinent imaging results. Radiologist's impression: Patient: JELANI FARR Facility:?[facility] Patient ID:?[id number] Site Patient ID:?[id number]. Site :?[id number] Study:?CT-Abdomen/Pelvis W/O-02/11/2025 5:10:00 PM Ordering Physician:Taylor Benitez Final Report: Indication: Lower abdominal pain, history of kidney stones Technique: Noncontrast CT through the abdomen and pelvis with multiplanar reformats. Comparison: CT abdomen pelvis performed 01/12/2025 Findings: Lower chest: No acute abnormality appreciated. Hepatobiliary: No significant parenchymal abnormality is appreciated. Cholelithiasis. Spleen: Unremarkable. Pancreas: No acute abnormality appreciated. Adrenal glands: No acute abnormality appreciated. Kidneys: Moderate left hydronephrosis has progressed from prior study. Bowel: No obstruction. No focal perienteric or pericolonic stranding is appreciated. Vascular: Calcified atherosclerosis. Lymph nodes: No gross lymphadenopathy. Peritoneum: No free air. No free fluid. : Partial transit of the obstructing left ureteral stone, now at the left UVJ. Bladder calculi again noted. Soft tissues: No acute abnormality appreciated. Fat containing umbilical hernia. Bones: No acute fracture. No lytic or blastic lesion. Degenerative changes of the spine and pelvis. Impression: Interval partial transit of the previously described obstructing 5 millimeter left ureteral stone, now present at the left UVJ. There has been interval worsening of hydronephrosis, now appearing moderate in severity. No other significant interval change. Please note that all CT scans at this facility use dose modulation, iterative reconstruction, and/or weight-based dosing when appropriate to reduce radiation dose to as low as reasonably achievable. Dictated by Sp Hirsch MD @ 02/11/2025 5:53:43 PM (Electronic Signature) Discharge Plan Discharge Clinical Impression: Renal colic on left side Patient Disposition: Home, Self-Care Condition: Stable Instructions: Renal Colic (ED) Additional Instructions: Drink plenty of fluids, goal is for clear looking urine. Can use the Fabius 5/325 1 tablet every 6-8 hours as needed, Toradol 10 mg 1 tablet up to 4 times a day. You should not use Toradol or NSAIDs starting February 15 in preparation for your upcoming surgery. If you develop fever, have uncontrolled pain, cannot take your medicines for any reason, started vomiting, do need to seek re-evaluation. Be aware that the Fabius is a narcotic and can make you constipated, may need to use MiraLax and or senna to prevent narcotic associated constipation. Please contact your urologist and let them know about current issues with this kidney stone. Prescriptions: No Action atorvastatin 10 mg tablet 10 mg PO DAILY escitalopram oxalate 10 mg tablet 10 mg PO DAILY fluticasone propion-salmeterol 250-50 mcg/dose blister with device 1 ea inhalation BID hydrochlorothiazide 12.5 mg tablet 12.5 mg PO DAILY losartan 50 mg tablet 75 mg PO BID tamsulosin 0.4 mg capsule 0.8 mg PO DAILY amlodipine 5 mg tablet 5 mg PO DAILY albuterol sulfate 90 mcg/actuation HFA aerosol inhaler 2 puff inhalation Q4-6H PRN calcium citrate 200 mg (950 mg) tablet 200 mg PO QDAY fexofenadine 180 mg tablet 180 mg PO Q24H fluticasone propion-salmeterol [Advair Diskus] 250-50 mcg/dose blister with device 1 inh inhalation Q12H levothyroxine 112 mcg tablet 112 mcg PO DAILY multivitamin Tablet 1 tab PO QAM albuterol sulfate 90 mcg/actuation HFA aerosol inhaler 2 puff inhalation Q4-6H PRN (Reason: shortness of breath or wheezing) Qty: 6.7 0RF benzonatate 100 mg capsule 100 mg PO BID PRN (Reason: cough) Qty: 14 0RF verapamil 240 mg tablet extended release 240 mg PO 3XD hydrocodone-acetaminophen 5-325 mg tablet 1 tab PO Q4-6H PRN (Reason: pain) Qty: 14 0RF Rx Instructions: may use 1-2 tabs every 4-6 hours as needed for discomfort. ketorolac 10 mg tablet 10 mg PO Q12H PRN (Reason: pain) Qty: 10 0RF Rx Instructions: 10 mg orally ;maximum total duration of 5 days from all oral, intranasal, or parenteral formulations Follow Up/Referrals: Jimmy Ley MD [Primary Care Provider, Family Practice] Stand Alone Forms: [facility] Info Instructions
--- NOTE | 2025-02-11 16:55 | CRLHL7_ITS ---
For Patients: As a result of the Century Cures Act, medical imaging exams and procedure reports are released immediately into your electronic medical record. You may view this report before your referring provider. If you have questions, please contact your health care provider. Indication: Lower abdominal pain, history of kidney stones Technique: Noncontrast CT through the abdomen and pelvis with multiplanar reformats. Comparison: CT abdomen pelvis performed 01/12/2025 Findings: Lower chest: No acute abnormality appreciated. Hepatobiliary: No significant parenchymal abnormality is appreciated. Cholelithiasis. Spleen: Unremarkable. Pancreas: No acute abnormality appreciated. Adrenal glands: No acute abnormality appreciated. Kidneys: Moderate left hydronephrosis has progressed from prior study. Bowel: No obstruction. No focal perienteric or pericolonic stranding is appreciated. Vascular: Calcified atherosclerosis. Lymph nodes: No gross lymphadenopathy. Peritoneum: No free air. No free fluid. : Partial transit of the obstructing left ureteral stone, now at the left UVJ. Bladder calculi again noted. Soft tissues: No acute abnormality appreciated. Fat containing umbilical hernia. Bones: No acute fracture. No lytic or blastic lesion. Degenerative changes of the spine and pelvis. Impression: Interval partial transit of the previously described obstructing 5 millimeter left ureteral stone, now present at the left UVJ. There has been interval worsening of hydronephrosis, now appearing moderate in severity. No other significant interval change. Please note that all CT scans at this facility use dose modulation, iterative reconstruction, and/or weight-based dosing when appropriate to reduce radiation dose to as low as reasonably achievable. Dictated by Sp Hirsch MD @ 02/11/2025 5:53:43 PM (Electronically Signed)
--- OUTSIDE RECORDS SUMMARY | 2025-02-11 17:00 | XMS_ITS | Clinical Summary ---
Author Organization [facility] Address [address] [place] [address] Phone Care Team Providers Care Dance Historian Name Role Phone Mohamud Christianson Unavailable Unavailable Conditions or Problems Problem Name Problem Code Onset Date Status Entry Date Provider Comment Standard Description Annotate Primary cough headache 22945601 (SNOMED CT) Active Petr Sanderson MD Cough headache syndrome Cough headache syndrome 24069439 (SNOMED CT) Active Petr Sanderson MD Cough headache syndrome Essential tremor [id number] (SNOMED CT) Active Raza Weir MD Essential tremor SYNCOPE [id number] (SNOMED CT) Active Asim Licona DO Syncope Medications Medication Instructions Start Date Stop Date Generic Name NDC Provider PRIMIDONE 50 MG TABS Week #1 take 1/2 in PM. Week #2 take 1/2 bid. Week #3 take 1/2 in AM and 1 in PM. Week #4 and on take 1 bid 3 PRIMIDONE [id number] Raza Weir MD Medications Administered No information [...] Procedures Code Procedure Name Date Entry Date [id number] MRA-Head W/O [id number] MRA-Neck W/O CPT-30125 MRA Head W/O CPT-93007 MRA Neck W/O [id number] Neurosurgery - NSA Referral ORDERS Patient Instructions ORDERS Follow up [id number] MRI-Brain W/WO Vital Signs No information available. Immunizations No information available. Advance Directives No information available.
[2025-02-11 17:23] LABS: Lactate* 0.8 mmol/L (0.5-1.9)
[2025-02-11 17:26] LABS: Appearance Urine Clear (Clear)
[2025-02-11 17:31] LABS: Hematocrit 42.2 % (37.0-53.0); Hemoglobin* 14.0 gm/dL (13.5-17.5); Immature Granulocytes Abs Auto 0.03 K/uL (0.00-0.30); Immature Granulocytes Pct Auto 0.3 %; Lymphocytes Absolute Auto 2.27 K/uL (0.90-2.90); Mean Corpuscular HGB Conc 33 gm/dL (32-36); Mean Corpuscular Hemoglobin 29 pg (26-34); Mean Corpuscular Volume 89 fL (80-100); RDW Coefficient of Variation % 12.1 % (11.5-15.5); Red Blood Count 4.77 m/uL (4.30-5.90); White Blood Count* 9.94 K/uL (4.50-11.00)
[2025-02-11 17:32] LABS: Slide Review Reflex No
[2025-02-11 18:12] VITALS: BP 139/88; PULSE 61; RESP 18; O2SAT 97
[2025-02-11 18:22] LABS: Albumin* 4.3 g/dL (3.3-5.0); Chloride* 103 mmol/L (96-114); Sodium* 140 mmol/L (135-149)
[2025-02-11 18:23] LABS: Potassium* 3.6 mmol/L (3.6-5.1)
[2025-02-11 18:25] LABS: Alanine Aminotransferase* 37 U/L (4-50); Aspartate Amino Transferase* 54 U/L (12-35); Blood Urea Nitrogen* 18 mg/dL (7-30); Creatinine* 0.8 mg/dL (0.5-1.5); Est. Creatinine Clearance* 56.92; Estimated Glomerular Filt Rate 91 ml/min
[2025-02-11 18:26] LABS: Alkaline Phosphatase* 68 U/L (40-150); Anion Gap 7 mEq/L (7-15); Bilirubin Total* 0.5 mg/dL (0.1-1.5); Calcium* 10.9 mg/dL (8.4-10.6); Carbon Dioxide* 30 mmol/L (20-32); Glucose* 84 mg/dL (60-115); Total Protein* 6.9 g/dL (6.0-8.3)
== END 2025-02-11 19:16 | disposition home or self-care (01) ==
PROVIDERS: Emergency Provider Family Medicine; PCP Surgery
DX: N23 Unspecified renal colic (principal)
CPT/HCPCS: 36415; 74176; 80053; 81001; 83605; 85025; 86140; 96374; 99284; J1885